=== PATIENT | female | born 1940 | race Caucasian/White ===

== ENCOUNTER 2017-12-21 16:18 | Emergency (ER) | payer MEDICARE ==
[2017-12-21 19:01] LABS: ABS Basophils 0 10^3/ul (0-0.2); ABS Eosinophils 0.1 10^3/ul (0-0.6); ABS Lymphocytes 2.9 10^3/ul (1.0-4.8); ABS Monocytes 1.2 10^3/ul (0-0.8); ABS Nucleated RBC 0 10^3/ul; Eosinophil % 0.7 % (0-6); Hematocrit 31 % (35-47); Lymphocyte % 28.6 % (25-47); Mean Corpuscular HGB Conc 36 g/dl (31-36); Mean Corpuscular Hemoglobin 33 pg (27-31); Mean Corpuscular Volume 94 fL (80-97); Mean Platelet Volume 7.6 um3 (7.4-10.4); Nucleated Red Blood Cells % 0.2; Platelet Count 363 10^3/ul (150-450); Red Blood Count 3.32 10^6/ul (4.0-5.4); Red Cell Distribution Width 21 % (10.5-15); White Blood Count 10.2 10^3/ul (3.5-10.8)
[2017-12-21 19:03] LABS: INR 1.1 (0.77-1.02)
[2017-12-21 19:05] LABS: EGFR Non-African American 54.4 (>60)
--- NOTE | 2017-12-21 19:06 | RAD ---
Indication: Dizziness. Single frontal view of the chest performed at 1839 hours was reviewed. Comparison is made with previous exam dated December 29, 2007. No mediastinal shift is noted. Heart is of normal size and configuration. Lung hines appear clear. There is likely poor inspiration bilaterally. IMPRESSION: NO ACTIVE CARDIOPULMONARY DISEASE IS NOTED.
--- NOTE | 2017-12-21 19:09 | RAD ---
Indication: Headaches. CT of the brain was performed without IV contrast. No prior study is available for comparison. Ventricular structures are midline. No midline shift is noted. The extra-axial spaces are unremarkable. There is no evidence of intracranial mass or hemorrhage. No other high or low density lesions are identified. Periventricular lucency consistent with chronic ischemic White matter change is noted. Mastoid air cells and paranasal sinuses are otherwise unremarkable. IMPRESSION: Chronic ischemic White matter change without evidence of intracranial mass or hemorrhage.
[2017-12-21 19:24] VITALS: BP 118/99
[2017-12-21] MEDS ORDERED: Acetaminophen TAB* 325 MG PO ONE (20:07)
--- NOTE | 2017-12-21 20:08 | RAD ---
Indication: Right upper quadrant pain. Real-time sonography of the right upper quadrant was performed. The liver measures 15 cm in length. It is diffusely increased in echogenicity consistent with hepatic steatosis. Left lobe of the liver is not well visualized. The patient status post cholecystectomy. The common duct measures 5 mm. The right kidney measures 9.3 x 4.3 x 4.8 cm without hydronephrosis. The visualized portions of the pancreas head, neck and proximal body are unremarkable. IMPRESSION: Limited evaluation due to body habitus. Echogenic liver consistent with hepatic steatosis. No biliary duct dilatation is noted.
[2017-12-21] MEDS ORDERED: Acetaminophen TAB* 325 MG ONE (20:09)
[2017-12-21 20:36] LABS: Urine Appearance Clear; Urine Blood Negative (Negative); Urine Color Yellow; Urine Ketones Trace (Negative); Urine Protein 1+(30 mg/dL) (Negative); Urine Specific Gravity 1.019 (1.010-1.030); Urine Urobilinogen Positive (Negative)
[2017-12-21] MEDS ORDERED: Levofloxacin TAB* 500 MG PO ONE (20:54)
--- NOTE | 2017-12-21 20:57 | ED ---
Jaya Castillo Stephanie, scribed for Brian Clinton on 12/21/17 at 1819 . Complex/Multi-Sys Presentation - HPI Summary HPI Summary: The pt is a 77 y/o F presenting to the ED with c/o QUEEN that began on 12/17/17. Symptoms include weakness, lack of appetite and nausea. She denies CP, SOB and abd pain. The pt has had several EKGs at PCP who sent the pt to the ED for evaluation. The pt has no hx of RI. - History Of Current Complaint Chief Complaint: EDGeneral Time Seen by Provider: 12/21/17 17:58 Hx Obtained From: Patient Onset/Duration: Gradual Onset, Lasting Days - 4, Still Present Timing: Constant Severity Currently: Moderate Associated Signs And Symptoms: Positive: Weakness, Headache, Nausea, Decreased Oral Intake. Negative: SOB, Chest Pain, Abdominal Pain - Allergies/Home Medications Allergies/Adverse Reactions: Allergies Allergy/AdvReac Type Severity Reaction Status Date / Time metronidazole [From Flagyl] Allergy Nausea And Verified 12/21/17 16:26 Vomiting Home Medications: Home Medications Atorvastatin* [Lipitor*] 40 mg PO DAILY 12/21/17 [History Confirmed 12/21/17] Levothyroxine TAB* [Synthroid TAB*] 125 mcg PO DAILY 12/21/17 [History Confirmed 12/21/17] PARoxetine HCL TAB* [Paxil TAB*] 10 - 20 mg PO DAILY 12/21/17 [History Confirmed 12/21/17] Propranolol TAB* [Inderal TAB*] 40 mg PO DAILY 12/21/17 [History Confirmed 12/21] amLODIPine TAB* [Norvasc 5 mg TAB*] 2.5 mg PO DAILY 12/21/17 [History Confirmed 12/21/17] PMH/Surg Hx/FS Hx/Imm Hx Sensory History: Denies: Hx Legally Blind EENT History: Denies: Hx Deafness - Cancer History Hx Chemotherapy: No Hx Radiation Therapy: No - Surgical History Surgery Procedure, Year, and Place: N/A Infectious Disease History: No Infectious Disease History: Denies: Traveled Outside the [place] in Last 30 Days - Family History Known Family History: Negative: Renal Disease - Social History Occupation: Retired Lives: With Family Review of Systems Positive: Other - lack of appetite. Negative: Fever Negative: Chest Pain Negative: Shortness Of Breath Positive: Nausea. Negative: Abdominal Pain Positive: Headache, Weakness All Other Systems Reviewed And Are Negative: Yes Physical Exam - Summary Physical Exam Summary: Appearance: Well appearing, no pain distress Skin: warm, dry, reflects adequate perfusion Head/face: normal Eyes: EOMI, CHAYITO ENT: normal Neck: supple, non-tender Respiratory: CTA, breath sounds present Cardiovascular: RRR, pulses symmetrical Abdomen: non-tender, soft Bowel: present Musculoskeletal: normal, strength/ROM intact Neuro: normal, sensory motor intact, A&Ox3 Triage Information Reviewed: Yes Vital Signs On Initial Exam: Initial Vitals Temp Pulse Resp BP Pulse Ox 99.4 F 90 16 162/75 93 12/21/17 16:20 12/21/17 16:20 12/21/17 16:20 12/21/17 16:20 12/21/17 16:20 Vital Signs Reviewed: Yes Diagnostics - Vital Signs Vital Signs Temp Pulse Resp BP Pulse Ox 12/21/17 16:20 99.4 F 90 16 162/75 93 - Laboratory Lab Results: Lab Results 12/21/17 12/21/17 12/21/17 Range/Units 18:30 18:30 18:30 WBC 10.2 (3.5-10.8) 10^3/ul RBC 3.32 L (4.0-5.4) 10^6/ul Hgb 11.0 L (12.0-16.0) g/dl Hct 31 L (35-47) % MCV 94 (80-97) fL MCH 33 H (27-31) pg MCHC 36 (31-36) g/dl RDW 21 H (10.5-15) % Plt Count 363 (150-450) 10^3/ul MPV 7.6 (7.4-10.4) um3 Neut % (Auto) 58.7 (38-83) % Lymph % (Auto) 28.6 (25-47) % [place] % (Auto) 11.6 H (0-7) % Eos % (Auto) 0.7 (0-6) % Baso % (Auto) 0.4 (0-2) % Absolute Neuts (auto) 6.0 (1.5-7.7) 10^3/ul Absolute Lymphs (auto) 2.9 (1.0-4.8) 10^3/ul Absolute Monos (auto) 1.2 H (0-0.8) 10^3/ul Absolute Eos (auto) 0.1 (0-0.6) 10^3/ul Absolute Basos (auto) 0 (0-0.2) 10^3/ul Absolute Nucleated RBC 0 10^3/ul Nucleated RBC % 0.2 INR (Anticoag Therapy) (0.77-1.02) APTT (26.0-36.3) seconds Sodium 136 L (139-145) mmol/L Potassium 3.8 (3.5-5.0) mmol/L Chloride 101 (101-111) mmol/L Carbon Dioxide 27 (22-32) mmol/L Anion Gap 8 (2-11) mmol/L BUN 13 (6-24) mg/dL Creatinine 0.99 H (0.51-0.95) mg/dL Est GFR ( Amer) 69.9 (>60) Est GFR (Non-Af Amer) 54.4 (>60) BUN/Creatinine Ratio 13.1 (8-20) Glucose 125 H (70-100) mg/dL Lactic Acid 0.9 (0.5-2.0) mmol/L Calcium 9.6 (8.6-10.3) mg/dL Magnesium 2.1 (1.9-2.7) mg/dL Total Bilirubin 3.20 H (0.2-1.0) mg/dL AST 20 (13-39) U/L ALT 11 (7-52) U/L Alkaline Phosphatase 44 (34-104) U/L Total Creatine Kinase 93 (10-223) U/L Troponin I 0.01 (<0.04) ng/mL Total Protein 7.1 (6.4-8.9) g/dL Albumin 4.5 (3.2-5.2) g/dL Globulin 2.6 (2-4) g/dL Albumin/Globulin Ratio 1.7 (1-3) TSH 2.63 (0.34-5.60) mcIU/mL Urine Color Urine Appearance Urine pH (5-9) Ur Specific [place] (1.010-1.030) Urine Protein (Negative) Urine Ketones (Negative) Urine Blood (Negative) Urine Nitrate (Negative) Urine Bilirubin (Negative) Urine Urobilinogen (Negative) Ur Leukocyte Esterase (Negative) Urine WBC (Auto) (Absent) Urine RBC (Auto) (Absent) Ur Squamous Epith Cells (Absent) Urine Bacteria (Absent) Urine Glucose (Negative) 12/21/17 12/21/17 Range/Units 18:30 20:04 WBC (3.5-10.8) 10^3/ul RBC (4.0-5.4) 10^6/ul Hgb (12.0-16.0) g/dl Hct (35-47) % MCV (80-97) fL MCH (27-31) pg MCHC (31-36) g/dl RDW (10.5-15) % Plt Count (150-450) 10^3/ul MPV (7.4-10.4) um3 Neut % (Auto) (38-83) % Lymph % (Auto) (25-47) % [place] % (Auto) (0-7) % Eos % (Auto) (0-6) % Baso % (Auto) (0-2) % Absolute Neuts (auto) (1.5-7.7) 10^3/ul Absolute Lymphs (auto) (1.0-4.8) 10^3/ul Absolute Monos (auto) (0-0.8) 10^3/ul Absolute Eos (auto) (0-0.6) 10^3/ul Absolute Basos (auto) (0-0.2) 10^3/ul Absolute Nucleated RBC 10^3/ul Nucleated RBC % INR (Anticoag Therapy) 1.10 H (0.77-1.02) APTT 27.7 (26.0-36.3) seconds Sodium (139-145) mmol/L Potassium (3.5-5.0) mmol/L Chloride (101-111) mmol/L Carbon Dioxide (22-32) mmol/L Anion Gap (2-11) mmol/L BUN (6-24) mg/dL Creatinine (0.51-0.95) mg/dL Est GFR ( Amer) (>60) Est GFR (Non-Af Amer) (>60) BUN/Creatinine Ratio (8-20) Glucose (70-100) mg/dL Lactic Acid (0.5-2.0) mmol/L Calcium (8.6-10.3) mg/dL Magnesium (1.9-2.7) mg/dL Total Bilirubin (0.2-1.0) mg/dL AST (13-39) U/L ALT (7-52) U/L Alkaline Phosphatase (34-104) U/L Total Creatine Kinase (10-223) U/L Troponin I (<0.04) ng/mL Total Protein (6.4-8.9) g/dL Albumin (3.2-5.2) g/dL Globulin (2-4) g/dL Albumin/Globulin Ratio (1-3) TSH (0.34-5.60) mcIU/mL Urine Color Yellow Urine Appearance Clear Urine pH 6.0 (5-9) Ur Specific [place] 1.019 (1.010-1.030) Urine Protein 1+(30 mg/dl) A (Negative) Urine Ketones Trace A (Negative) Urine Blood Negative (Negative) Urine Nitrate Negative (Negative) Urine Bilirubin Negative (Negative) Urine Urobilinogen Positive A (Negative) Ur Leukocyte Esterase 1+ A (Negative) Urine WBC (Auto) Absent (Absent) Urine RBC (Auto) Trace(0-2/hpf) (Absent) Ur Squamous Epith Cells Present A (Absent) Urine Bacteria Absent (Absent) Urine Glucose Negative (Negative) Result Diagrams: 12/21/17 18:30 12/21/17 18:30 Lab Statement: Any lab studies that have been ordered have been reviewed, and results considered in the medical decision making process. - Radiology CXR Xray Interpretation: No Acute Changes Radiology Interpretation Completed By: Radiologist - NO ACTIVE CARDIOPULMONARY DISEASE IS NOTED. ED physician has reviewed this report. - CT Brain CT Interpretation: No Acute Changes CT Interpretation Completed By: Radiologist - Chronic ischemic White matter change without evidence of intracranial mass or hemorrhage. ED physician has reviewed this report. - EKG 16:50 Cardiac Rate: NL EKG Rhythm: Sinus Rhythm - 83 BPM EKG Interpretation: No acute changes - Additional Comments Diagnostic Additional Comments: US abdomen reveals: Limited evaluation due to body habitus. Echogenic liver consistent with hepatic steatosis. No biliary duct dilatation is noted. ED physician has reviewed this report. Complex Multi-Symp Course/Dx Course Of Treatment: The pt is a 77 y/o F presenting to the ED with c/o QUEEN that began on 4/22/18. Symptoms include weakness, lack of appetite and nausea. She denies CP, SOB and abd pain. Blood and UA obtained. Bilirubin elevated. ED physician recommended the pt follow up with GI and PCP within 1 week. - Diagnoses Differential Diagnoses/HQI/PQRI: CVA, Metabolic Abnormality, Sepsis, Urinary Tract Infection Provider Diagnoses: UTI (urinary tract infection), Elevated bilirubin Discharge - Sign-Out/Discharge Documenting (check all that apply): Discharge/Admit/Transfer - Discharge - Discharge Plan Condition: Stable Disposition: HOME Prescriptions: Levofloxacin TAB* [Levaquin TAB*] 500 mg PO DAILY #3 tab Patient Education Materials: Urinary Tract Infection in Women (ED) Referrals: Yoli Albert MD [Primary Care Provider] - 1 Week Juan Greenberg MD [Medical Doctor] - 1 Week Additional Instructions: Return to ED for new or worsening symptoms. - Billing Disposition and Condition Condition: STABLE Disposition: HOME The documentation as recorded by the Jaya gastelum Stephanie accurately reflects the service I personally performed and the decisions made by Mary Beth reyez Emmanuel.
== END 2017-12-21 21:06 | disposition home or self-care (01) ==
LOC: ED 16:18
DX: N39.0 Urinary tract infection, site not specified (principal); E80.7 Disorder of bilirubin metabolism, unspecified; R53.1 Weakness; R11.0 Nausea; R51 Headache; R63.0 Anorexia
CPT/HCPCS: 36415; 70450; 71045; 76705; 80053; 81003; 81015; 82150; 82248; 82550; 83605; 83690; 83735; 84443; 84484; 85025; 85610; 85730; 87086; 93005; 99283; A9270-GY

== ENCOUNTER 2018-08-01 15:17 | Inpatient (IN) | payer MEDICARE ==
[2018-08-01] MEDS ORDERED: Ondansetron INJ* 2 MG/ML VIAL IV PRN (15:34)
[2018-08-01] MEDS ORDERED: Acetaminophen TAB* 325 MG PO PRN (15:34)
[2018-08-01] MEDS: NS 0.9% 1000 ML* 1,000 ML IV SCH ×2 (17:29→23:26)
[2018-08-01] MEDS: Enoxaparin(*) 40 MG/0.4 ML SYR SUBCUT SCH (19:21)
[2018-08-01] MEDS: methylPREDNISolone SOD 40 MG* 1 ML VIAL IV SCH (19:21)
[2018-08-02] MEDS: methylPREDNISolone SOD 40 MG* 1 ML VIAL IV SCH ×2 (03:03→16:16)
--- NOTE | 2018-08-02 05:12 | HP ---
CC: Yoli Albert MD; Monica Santos MD * HISTORY AND PHYSICAL: DATE OF ADMISSION: 08/01/18 PRIMARY CARE PROVIDER: Yoli Albert MD PRIMARY ONCOLOGIST/GORE INSERTER: Monica Santos MD ATTENDING PHYSICIAN: Rm Smith MD * (DICTATED BY MONA WILL) ADMITTING PROVIDER: MONA Will CHIEF COMPLAINT: Malaise. 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 Monica Santos for the last several months and recently completed a prednisone taper approximately 6 weeks ago. The patient states that she was feeling very well while on the prednisone and shortly following her taper. She has been seen on 2 occasions since completing for prednisone, on both occasions her hemoglobin was within normal limits and the patient was asymptomatic. Over the last week to 2 weeks, the patient has noted progressive fatigue as well as darkly-colored urine. Her has noted that her skin appeared to be slightly yellow in color over the last day or so. She presented to medical oncology office with these complaints. Her hemoglobin was noted to be 7.1 with a total bilirubin of 8 and she was subsequently referred for hospitalization. Regarding patient's prior presentation, she had a mild anemia with a hemoglobin of approximately 11 and presented to the emergency department with complaints of fatigue. Total bilirubin was noted to be moderately elevated in the 2 to 3 range at that time with slight dilation of the common bile duct. She underwent GI evaluation who noted that the majority of her bilirubin was mostly indirect. Subsequent haptoglobin was undetectable and her LDH was elevated. She was subsequently referred to Dr. Santos for evaluation of hemolytic anemia. Direct Elias testing was positive. She was subsequently started on prednisone with a very slow taper, which she completed approximately 6 weeks ago as noted above. PAST MEDICAL HISTORY: 1. Hypothyroidism. 2. Hyperlipidemia. 3. Hypertension. 4. Depression. 5. Autoimmune hemolytic anemia. PAST SURGICAL HISTORY: 1. Cholecystectomy. 2. Tonsillectomy. HOME MEDICATIONS: 1. Amlodipine 2.5 mg p.o. twice daily. 2. Vitamin D 1000 units p.o. daily. 3. Fish oil 1000 mg p.o. daily. 4. Folic acid 1 mg p.o. daily. 5. Lipitor 20 mg p.o. daily. 6. Meclizine 25 mg p.o. 3 times daily as needed for dizziness. 7. Paxil 10 mg p.o. daily. 8. Probiotic 1 capsule p.o. daily. 9. Propranolol 40 mg p.o. daily. 10. Synthroid 125 mcg p.o. daily. 11. Tums 500 mg chewable as needed for heartburn. SOCIAL HISTORY: The patient lives at home with her . No significant history of smoking or alcohol consumption. PHYSICAL EXAMINATION GENERAL: This is a pleasant-appearing 77-year-old female accompanied by her who appears mildly fatigued but in no acute distress. HEENT: Head is normocephalic, atraumatic. Mucous membranes are pink and moist , noted scleral icterus. RESPIRATORY: Lungs are clear to auscultation without wheezes, crackles or rhonchi. CARDIOVASCULAR: Heart has a regular rate and rhythm without murmurs, rubs, or gallops. ABDOMEN: Soft and nontender to palpation. EXTREMITIES: No edema. SKIN: Mildly jaundiced in appearance. LABORATORY DATA: CBC shows a white blood cell count of 16,000, hemoglobin of 7.1 g/dL, and a platelet count of 347,000. Chemistry panel shows a sodium of 139, potassium of 4.0, BUN of 20, creatinine of 1.02, total bilirubin of 8. LDH of 714 with a haptoglobin that is pending. IMAGING: None. ASSESSMENT AND PLAN: This is a 77-year-old female with known autoimmune hemolytic anemia, recently completed prednisone taper, presents with progressive malaise and fatigue with obvious jaundice on exam and significant anemia and hyperbilirubinemia. The patient subsequently admitted for relapse of her autoimmune hemolytic anemia. 1. Hemolytic anemia - plan to restart corticosteroids. This is a rather rapid relapse and patient may require rituximab versus splenectomy. For the time being, we will start with IV Solu-Medrol and transition to oral prednisone at 1 mg/kg. Avoid transfusion at this time unless she becomes grossly symptomatic. Start IV fluids and closely monitor bilirubin. 2. Hypertension - continue amlodipine at this time. 3. Depression - continue Paxil. 4. DVT prophylaxis - 40 mg of Lovenox subcu daily. 5. Code status: The patient is full code. 6. Healthcare proxy is her . DISPOSITION: The patient is being admitted to inpatient status with estimated length of stay to be greater than 2 midnights. MONA WILL [id number]/[facility] #: [id number] [facility]ENTERCoreen
[2018-08-02 05:54] LABS: Hematocrit 16 % (35-47); Mean Corpuscular HGB Conc 34 g/dl (31-36); Mean Corpuscular Hemoglobin 36 pg (27-31); Mean Corpuscular Volume 107 fL (80-97); Mean Platelet Volume 8.1 fL (7.4-10.4); Platelet Count 289 10^3/ul (150-450); Red Blood Count 1.52 10^6/ul (4.00-5.40); Red Cell Distribution Width 36 % (10.5-15); White Blood Count 15.4 10^3/ul (3.5-10.8)
[2018-08-02 06:02] LABS: EGFR Non-African American 65.7 (>60)
[2018-08-02 06:11] LABS: ABS Basophils 0 10^3/ul (0-0.2); ABS Eosinophils 0.1 10^3/ul (0-0.6); ABS Lymphocytes 3.1 10^3/ul (1.0-4.8); ABS Monocytes 0.9 10^3/ul (0-0.8); ABS Neutrophils 11.1 10^3/ul (1.5-7.7); ABS Nucleated RBC 2.7 10^3/ul; Eosinophil % 0.3 %; Lymphocyte % 20.7 %
[2018-08-02] MEDS: Levothyroxine TAB* 125 MCG TAB PO SCH (06:25)
--- NOTE | 2018-08-02 10:04 | PN ---
Progress Note - Progress Note Date of Service: 08/02/18 SOAP: Subjective: [Patient reports significant fatigue this morning. Denies SOB or dizziness.] Objective: [ Acetaminophen (Tylenol Tab*) 650 mg PO Q4H PRN PRN Reason: FEVER/PAIN Amlodipine Besylate (Norvasc Tab*) 2.5 mg PO BID [facility] Atorvastatin Calcium (Lipitor*) 20 mg PO DAILY [facility] Enoxaparin Sodium (Lovenox(*)) 40 mg SUBCUT Q24H [facility] Last Admin: 08/01/18 19:21 Dose: 40 mg Folic Acid (Folvite Tab*) 1 mg PO DAILY [facility] Sodium Chloride (Ns 0.9% 1000 Ml*) 1,000 mls @ 200 mls/hr IV PER RATE [facility] Stop: 08/02/18 20:44 Last Admin: 08/01/18 23:26 Dose: 200 mls/hr Levothyroxine Sodium (Synthroid Tab*) 125 mcg PO DAILY@0630 [facility] Last Admin: 08/02/18 06:25 Dose: 125 mcg Methylprednisolone Sodium Succinate (Solu-Medrol 40 Mg) 40 mg IV Q12H [facility] Last Admin: 08/02/18 03:03 Dose: 40 mg Ondansetron HCl (Zofran Inj*) 4 mg IV Q4H PRN PRN Reason: NAUSEA/VOMITING Paroxetine HCl (Paxil Tab*) 10 mg PO DAILY [facility] Propranolol HCl (Inderal Tab*) 40 mg PO DAILY [facility] Laboratory Results - last 24 hr 08/02/18 08/02/18 08/02/18 05:15 05:15 05:16 WBC 15.4 H RBC 1.52 L Hgb 5.5 L* Hct 16 L MCV 107 H MCH 36 H MCHC 34 RDW 36 H Plt Count 289 MPV 8.1 Neut % (Auto) 72.8 Lymph % (Auto) 20.7 [place] % (Auto) 6.0 Eos % (Auto) 0.3 Baso % (Auto) 0.2 Absolute Neuts (auto) 11.1 H Absolute Lymphs (auto) 3.1 Absolute Monos (auto) 0.9 H Absolute Eos (auto) 0.1 Absolute Basos (auto) 0 Absolute Nucleated RBC 2.7 Nucleated RBC % 18.0 Sodium 140 Potassium 3.8 Chloride 111 Carbon Dioxide 24 Anion Gap 5 BUN 18 Creatinine 0.84 Est GFR ( Amer) 79.6 Est GFR (Non-Af Amer) 65.7 BUN/Creatinine Ratio 21.4 H Glucose 223 H Calcium 8.4 L Total Bilirubin 5.70 H D AST 28 ALT 12 Alkaline Phosphatase 56 Total Protein 5.3 L Albumin 3.5 Globulin 1.8 L Albumin/Globulin Ratio 1.9 Blood Type A Positive Antibody Screen Negative Crossmatch See Detail Vital Signs: Temp Pulse Resp BP Pulse Ox 98.8 F 104 17 135/45 96 08/02/18 03:01 08/02/18 03:01 08/02/18 03:01 08/02/18 03:01 08/02/18 03:01 Exam: Gen: Fatigued appearing 77 yo female in NAD HEENT: MMM CV: RRR, no m/r/g Resp: CTA, no w/c/r Abd: soft, nonTTP Ext: trace LE edema Skin: mild jaundice] Assessment: [77 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] Plan: [1. AIHA - cont IV corticosteroids - transfuse 2U PRBCs this am as Hgb is now <6, repeat CBC this afternoon following transfusion - noted improvement in Tbili, follow reticulocyte count - consider rituximab/splenectomy as future treatment options Dispo: anticipate dc home when Hgb stabilizes]
[2018-08-02] MEDS: amLODIPine TAB* 5 MG PO SCH ×2 (10:16→20:42)
[2018-08-02] MEDS: PARoxetine HCL TAB* 10 MG PO SCH (10:16)
[2018-08-02] MEDS: Propranolol TAB* 40 MG PO SCH (10:16)
[2018-08-02] MEDS: Atorvastatin* 40 MG TAB PO SCH (10:17)
[2018-08-02] MEDS: Folic Acid TAB* 1 MG PO SCH (10:17)
[2018-08-02 16:08] LABS: Immature Retic Fraction 0.79; RBC Retic Count 2.66 10^6/ul (4.6-6.2); Red Blood Count 2.66 10^6/ul (4.00-5.40)
[2018-08-02 17:18] LABS: Corrected Retic Count 13.6 % (0.5-1.5); Hematocrit 26 % (35-47); Hematocrit for Retic CNT 26 % (35-47); Hemoglobin 8.8 g/dl (12.0-16.0); Mean Corpuscular HGB Conc 34 g/dl (31-36); Mean Corpuscular Hemoglobin 33 pg (27-31); Mean Corpuscular Volume 99 fL (80-97); Platelet Count 312 10^3/ul (150-450); Red Cell Distribution Width 28 % (10.5-15); White Blood Count 26.7 10^3/ul (3.5-10.8)
[2018-08-02] MEDS: Enoxaparin(*) 40 MG/0.4 ML SYR SUBCUT SCH (18:16)
[2018-08-02 23:06] LABS: Hemoglobin 5.5 g/dl (12.0-16.0)
[2018-08-03] MEDS: methylPREDNISolone SOD 40 MG* 1 ML VIAL IV SCH ×2 (03:16→18:27)
[2018-08-03] MEDS: Levothyroxine TAB* 125 MCG TAB PO SCH (05:31)
[2018-08-03 05:42] LABS: Immature Retic Fraction 0.77; RBC Retic Count 2.41 10^6/ul (4.6-6.2); Red Blood Count 2.41 10^6/ul (4.00-5.40)
[2018-08-03 06:15] LABS: ABS Basophils 0 10^3/ul (0-0.2); ABS Eosinophils 0 10^3/ul (0-0.6); ABS Lymphocytes 2.7 10^3/ul (1.0-4.8); ABS Monocytes 1.4 10^3/ul (0-0.8); ABS Neutrophils 14.3 10^3/ul (1.5-7.7); Corrected Retic Count 12.3 % (0.5-1.5); Eosinophil % 0 %; Hematocrit 24 % (35-47); Hematocrit for Retic CNT 24 % (35-47); Hemoglobin 8.1 g/dl (12.0-16.0); Lymphocyte % 14.8 %; Mean Corpuscular HGB Conc 33 g/dl (31-36); Mean Corpuscular Hemoglobin 34 pg (27-31); Mean Corpuscular Volume 101 fL (80-97); Nucleated Red Blood Cells % 21.5; Platelet Count 289 10^3/ul (150-450); Red Cell Distribution Width 30 % (10.5-15); White Blood Count 18.5 10^3/ul (3.5-10.8)
[2018-08-03] MEDS ORDERED: NS 0.9% 1000 ML* 1,000 ML IV SCH (08:15)
[2018-08-03] MEDS: amLODIPine TAB* 5 MG PO SCH ×2 (09:09→19:56)
[2018-08-03] MEDS: Folic Acid TAB* 1 MG PO SCH (09:10)
[2018-08-03] MEDS: Atorvastatin* 40 MG TAB PO SCH (09:10)
[2018-08-03] MEDS: Propranolol TAB* 40 MG PO SCH (09:10)
[2018-08-03] MEDS: PARoxetine HCL TAB* 10 MG PO SCH (09:11)
--- NOTE | 2018-08-03 16:48 | PN ---
Progress Note - Progress Note Date of Service: 08/03/18 SOAP: Subjective: [Feels slightly better today. No new complaints] Objective: [ Laboratory Results - last 24 hr 08/02/18 08/02/18 08/02/18 05:16 14:03 15:45 WBC 26.7 H RBC RBC (Retic) Cancelled Hgb 5.5 L* 8.8 L Hct 26 L HCT (Retic) Cancelled 26 L D MCV 99 H MCH 33 H MCHC 34 RDW 28 H Plt Count 312 MPV 8.0 Neut % (Auto) Lymph % (Auto) Ada % (Auto) Eos % (Auto) Baso % (Auto) Absolute Neuts (auto) Absolute Lymphs (auto) Absolute Monos (auto) Absolute Eos (auto) Absolute Basos (auto) Absolute Nucleated RBC Immature Gran % Neutrophils % Band Neutrophils % Lymphocytes % Reactive Lymphs % Metamyelocytes % Nucleated RBC % Nucleated RBCs/100 WBC Normal RBC Morphology Polychromasia Hypochromasia Microcytosis Macrocytosis Retic Count, Calc Cancelled Corrected Retic Count Cancelled 13.6 H Retic Shift Factor Cancelled 2.0 Retic Production Index Cancelled 6.80 Immature Retic Fraction Cancelled Mean Retic Volume Cancelled Sodium Potassium Chloride Carbon Dioxide Anion Gap BUN Creatinine Est GFR ( Amer) Est GFR (Non-Af Amer) BUN/Creatinine Ratio Glucose Calcium Total Bilirubin AST ALT Alkaline Phosphatase Lactate Dehydrogenase Total Protein Albumin Globulin Albumin/Globulin Ratio Transfusion React Rpt Donor Unit # [id number] Reaction Interpretation 08/03/18 08/03/18 05:09 05:09 WBC 18.5 H RBC 2.41 L RBC (Retic) 2.41 L Hgb 8.1 L Hct 24 L HCT (Retic) 24 L MCV 101 H MCH 34 H MCHC 33 RDW 30 H Plt Count 289 MPV 8.0 Neut % (Auto) 77.6 Lymph % (Auto) 14.8 Ada % (Auto) 7.4 Eos % (Auto) 0 Baso % (Auto) 0.2 Absolute Neuts (auto) 14.3 H Absolute Lymphs (auto) 2.7 Absolute Monos (auto) 1.4 H Absolute Eos (auto) 0 Absolute Basos (auto) 0 Absolute Nucleated RBC 4.0 Immature Gran % 13 H Neutrophils % 76 Band Neutrophils % 9 H Lymphocytes % 9 Reactive Lymphs % 2 Metamyelocytes % 4 H Nucleated RBC % 21.5 Nucleated RBCs/100 WBC 15 H Normal RBC Morphology Not Reportable Polychromasia 3+ Hypochromasia 2+ Microcytosis 3+ Macrocytosis 3+ Retic Count, Calc 23.0 H Corrected Retic Count 12.3 H Retic Shift Factor 2.0 Retic Production Index 6.20 Immature Retic Fraction 0.77 Mean Retic Volume 124.3 Sodium 142 Potassium 4.4 Chloride 111 Carbon Dioxide 25 Anion Gap 6 BUN 22 Creatinine 0.86 Est GFR ( Amer) 77.4 Est GFR (Non-Af Amer) 64.0 BUN/Creatinine Ratio 25.6 H Glucose 172 H Calcium 9.0 Total Bilirubin 4.10 H D AST 25 ALT 13 Alkaline Phosphatase 57 Lactate Dehydrogenase 700 H Total Protein 5.6 L Albumin 3.7 Globulin 1.9 L Albumin/Globulin Ratio 1.9 Transfusion React Rpt Donor Unit # Reaction Interpretation Acetaminophen (Tylenol Tab*) 650 mg PO Q4H PRN PRN Reason: FEVER/PAIN Amlodipine Besylate (Norvasc Tab*) 2.5 mg PO BID [facility] Last Admin: 08/03/18 09:09 Dose: 2.5 mg Atorvastatin Calcium (Lipitor*) 20 mg PO DAILY [facility] Last Admin: 08/03/18 09:10 Dose: 20 mg Enoxaparin Sodium (Lovenox(*)) 40 mg SUBCUT Q24H [facility] Last Admin: 08/02/18 18:16 Dose: 40 mg Folic Acid (Folvite Tab*) 1 mg PO DAILY [facility] Last Admin: 08/03/18 09:10 Dose: 1 mg Sodium Chloride (Ns 0.9% 1000 Ml*) 1,000 mls @ 100 mls/hr IV PER RATE [facility] Stop: 08/03/18 18:14 Last Admin: 08/03/18 09:09 Dose: 100 mls/hr Levothyroxine Sodium (Synthroid Tab*) 125 mcg PO DAILY@0630 [facility] Last Admin: 08/03/18 05:31 Dose: 125 mcg Methylprednisolone Sodium Succinate (Solu-Medrol 40 Mg) 40 mg IV Q12H [facility] Last Admin: 08/03/18 03:16 Dose: 40 mg Ondansetron HCl (Zofran Inj*) 4 mg IV Q4H PRN PRN Reason: NAUSEA/VOMITING Paroxetine HCl (Paxil Tab*) 10 mg PO DAILY [facility] Last Admin: 08/03/18 09:11 Dose: 10 mg Propranolol HCl (Inderal Tab*) 40 mg PO DAILY [facility] Last Admin: 08/03/18 09:10 Dose: 40 mg Vital Signs: Temp Pulse Resp BP Pulse Ox 97.8 F 80 16 126/45 94 08/03/18 07:13 08/03/18 07:13 08/03/18 08:00 08/03/18 07:13 08/03/18 07:13 Exam: Gen: Fatigued appearing 77 yo female in NAD HEENT: MMM CV: RRR, no m/r/g Resp: CTA, no w/c/r Abd: soft, nonTTP Ext: trace LE edema Skin: mild jaundice] Assessment: [77 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] Plan: [1. AIHA - cont IV corticosteroids, transition to oral prednisone tomorrow - received 2U PRBCs yesterday, and responded well - noted improvement in Tbili, and reticulocyte count - plan for rituximab starting next week as an outpatient Dispo: anticipate likely dc home tomorrow with continued oral prednisone and plan for rituximab starting 08/10]
[2018-08-03] MEDS: Enoxaparin(*) 40 MG/0.4 ML SYR SUBCUT SCH (18:28)
[2018-08-04] MEDS: Levothyroxine TAB* 125 MCG TAB PO SCH (06:03)
[2018-08-04 06:26] LABS: Immature Retic Fraction 0.77; RBC Retic Count 2.38 10^6/ul (4.6-6.2); Red Blood Count 2.38 10^6/ul (4.00-5.40)
[2018-08-04 06:47] LABS: EGFR Non-African American 56.4 (>60)
[2018-08-04 08:48] LABS: Corrected Retic Count 13.7 % (0.5-1.5); Hematocrit 25 % (35-47); Hematocrit for Retic CNT 25 % (35-47); Mean Corpuscular HGB Conc 32 g/dl (31-36); Mean Corpuscular Hemoglobin 34 pg (27-31); Mean Corpuscular Volume 104 fL (80-97); Mean Platelet Volume 8.1 fL (7.4-10.4); Platelet Count 266 10^3/ul (150-450); Red Cell Distribution Width 36 % (10.5-15); White Blood Count 15.2 10^3/ul (3.5-10.8)
[2018-08-04 08:49] LABS: ABS Basophils 0 10^3/ul (0-0.2); ABS Eosinophils 0 10^3/ul (0-0.6); ABS Lymphocytes 2.6 10^3/ul (1.0-4.8); ABS Monocytes 1.1 10^3/ul (0-0.8); ABS Neutrophils 11.6 10^3/ul (1.5-7.7); ABS Nucleated RBC 1.5 10^3/ul; Eosinophil % 0 %; Lymphocyte % 16.8 %; Nucleated Red Blood Cells % 9.8
[2018-08-04] MEDS ORDERED: predniSONE TAB* 20 MG PO SCH (09:00)
[2018-08-04] MEDS: Folic Acid TAB* 1 MG PO SCH (09:37)
[2018-08-04] MEDS: amLODIPine TAB* 5 MG PO SCH (09:37)
[2018-08-04] MEDS: PARoxetine HCL TAB* 10 MG PO SCH (09:37)
[2018-08-04] MEDS: Atorvastatin* 40 MG TAB PO SCH (09:41)
[2018-08-04] MEDS: Propranolol TAB* 40 MG PO SCH (09:42)
--- NOTE | 2018-08-04 09:48 | PN ---
Progress Note - Progress Note Date of Service: 08/04/18 SOAP: Subjective: []Feels better then admission. Energy is good, ok to go home. Acetaminophen (Tylenol Tab*) 650 mg PO Q4H PRN PRN Reason: FEVER/PAIN Amlodipine Besylate (Norvasc Tab*) 2.5 mg PO BID [facility] Last Admin: 08/04/18 09:37 Dose: 2.5 mg Atorvastatin Calcium (Lipitor*) 20 mg PO DAILY [facility] Last Admin: 08/04/18 09:41 Dose: 20 mg Enoxaparin Sodium (Lovenox(*)) 40 mg SUBCUT Q24H [facility] Last Admin: 08/03/18 18:28 Dose: 40 mg Folic Acid (Folvite Tab*) 1 mg PO DAILY [facility] Last Admin: 08/04/18 09:37 Dose: 1 mg Levothyroxine Sodium (Synthroid Tab*) 125 mcg PO DAILY@0630 [facility] Last Admin: 08/04/18 06:03 Dose: 125 mcg Ondansetron HCl (Zofran Inj*) 4 mg IV Q4H PRN PRN Reason: NAUSEA/VOMITING Paroxetine HCl (Paxil Tab*) 10 mg PO DAILY [facility] Last Admin: 08/04/18 09:37 Dose: 10 mg Prednisone (Deltasone Tab*) 80 mg PO DAILY [facility] Last Admin: 08/04/18 09:41 Dose: 80 mg Propranolol HCl (Inderal Tab*) 40 mg PO DAILY [facility] Last Admin: 08/04/18 09:42 Dose: 40 mg Objective: [] Vital Signs Temp Pulse Resp BP Pulse Ox 97.7 F 66 24 116/44 93 08/04/18 04:00 08/04/18 04:00 08/04/18 04:00 08/04/18 04:00 08/04/18 04:00 Exam: Gen: Fatigued appearing 77 yo female in NAD HEENT: MMM, aisha-orbital edema CV: RRR, no m/r/g Resp: CTA, no w/c/r Abd: soft, nonTTP Ext: trace LE edema Skin: mild jaundice Assessment: [77 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 Now on Prednisone 1 mg/kg, Hgb stable today after transfusion] Plan: [1. AIHA - discharge today on Pred 80 - received 2U PRBCs 08/02/18, check CBC Monday - plan for rituximab starting next week as an outpatient 2. Edema 2nd to steroids, follow.
[2018-08-04 10:39] VITALS: BP 131/58
--- NOTE | 2018-08-04 10:41 | DS ---
DISCHARGE SUMMARY: DATE OF ADMISSION: 08/02/18 DATE OF DISCHARGE: 08/04/18 DISCHARGE DIAGNOSES: 1. Autoimmune hemolytic anemia. 2. Need for red blood transfusions. HOSPITAL COURSE: Please see history and present for details of presentation. A 77- year-old female with a history of autoimmune hemolytic anemia. She had been on prednisone, but then relapsed after steroids were tapered off. She came with a hemoglobin of 5.5 and profound fatigue. She was started on prednisone 1 mg/kg and given 2 units of packed red blood cells. She responded well to the 2 units and hemoglobin over the last 2 days has been stable to trending down slowly. She feels better after the transfusion and feels she can manage at home. Plan will be to discharge home on steroids and follow up in clinic next week for IV rituximab. Retic count is stable at 23%, hemoglobin is 8.0 today, 8.1 yesterday. Other complaint this morning is periorbital edema that I think is secondary to the steroids and IV fluids. MEDICATIONS ON DISCHARGE: 1. Amlodipine 5 mg p.o. daily. 2. Lipitor 40 mg p.o. daily. 3. Folic acid 1 g per day. 4. Levothyroxine 125 mcg per day. 5. Paroxetine 10 mg daily. 6. Prednisone 80 mg p.o. daily. 7. Pantoprazole 40 mg daily. 8. Tylenol with Codeine as needed 1 tab q.4 hours. 9. Calcium 500 mg a day. 10. Vitamin D 1000 mcg a day. 11. Fish oil 1000 a day. 12. Meclizine 25 mg as needed. New medications in addition to the prednisone will be omeprazole 40 mg p.o. daily for GI prophylaxis. We will have her get a CBC on Monday and can transfuse as an outpatient as needed, rituximab will be planned later in the week. Follow up with Dr. Santos on 08/10/18. [id number]/[facility] #: [id number] [facility] SYSTEMCoreen
== END 2018-08-04 11:09 | disposition home or self-care (01) | DRG 810 ==
LOC: MED 15:50
PROVIDERS: ADMIT Internal Medicine Hematology & Oncology; ATTEND Internal Medicine Hematology & Oncology
PROC: 30233N1 Transfusion of Nonautologous Red Blood Cells into Peripheral Vein, Percutaneous Approach (ICD-10-PCS; principal; 2018-08-02)
DX: D59.1 Other autoimmune hemolytic anemias (principal); E03.9 Hypothyroidism, unspecified; E78.5 Hyperlipidemia, unspecified; I10 Essential (primary) hypertension; F32.9 Major depressive disorder, single episode, unspecified; Z90.49 Acquired absence of other specified parts of digestive tract; H05.229 Edema of unspecified orbit; T38.0X5A Adverse effect of glucocorticoids and synthetic analogues, initial encounter; Y92.239 Unspecified place in hospital as the place of occurrence of the external cause; Z79.52 Long term (current) use of systemic steroids
CPT/HCPCS: 36415; 80053; 80074; 83615; 85025; 85027; 85045; 86078; 86850; 86900; 86901; 86922; 99222; 99232; 99239; A9270-GY; J1650; J2920; J7512; P9016

== ENCOUNTER 2018-10-02 08:37 | Inpatient (IN) | payer MEDICARE ==
[~2018-10-02 08:37] MED LIST: Buffered Lidocaine 1% SYRIN* 1 ML/SYRINGE INTRADERM ONE; Famotidine IV* 10 MG/ML 2 ML (20 mg) IV ONE; Lactated Ringers 1000 ML Bag* 1,000 ML IV SCH; Scopolamine 1.5 mg* PATCH TRANSDERM SCH
--- OUTSIDE RECORDS SUMMARY | 2018-10-02 08:41 | XMS REPORT | Continuity of Care Document ---
:1940 External Reference #:[id number] [facility] Care Team Providers Name Role Phone Yoli Albert MD Primary Care Physician Unavailable Payers Type Date Identification Numbers Payment Provider Subscriber Effective: 2018 Policy Number: [id number] Medicare Medina Baldwin PayID: [id number] [address] [place] [address] Effective: 2018 Policy Number: [facility] Medina Baldwin [id number] PayID: [id number] [address] [place] [address] Advance Directives Description No Information Available Problems Description No Information Family History Description No Information Available Social History Type Date Description Comments Sex Unknown Marital Status Tobacco Use Start: Unknown Patient has never smoked Smoking Status Reviewed: 09/24/18 Patient has never smoked Allergies, Adverse Reactions, Alerts Date Description Reaction Status Severity Comments 09/24/2018 Flagyl Active 09/24/2018 NSAIDs Active Medications Medication Date Status Form Strength Qnty SIG Indications Ordering Provider Omeprazole Active Capsules DR 20mg 30caps 2 by Sulaiman 019 mouth [place] every day , FACS Amlodipine Active Tablets 2.5mg 1 by Unknown Besylate 000 mouth twice a day Vitamin D High Active Capsules 1000Unit 1 by Unknown Potency 000 mouth every day Fish Oil Active Capsules 1000mg 1 tab by Unknown 000 mouth every morning Folic Acid 0 Active Tablets 1mg 1 by Unknown 000 mouth every day Lipitor 0 Active Tablets 20mg 1 every Unknown 000 at night Paxil 0 Active Tablets 10mg 1 by Unknown 000 mouth every day Probiotic 0 Active Capsules 1 by Unknown 000 mouth every day Propranolol 00/00/0 Active Tablets 40mg take 1 Unknown HCL 000 tablet by mouth once a day Synthroid Active Tablets 125mcg 1 by Unknown 000 mouth every day Tums Active Chewtabs 500mg 2 as Unknown 000 needed for acid stomach Meclizine HCL Active Chewtabs 25mg 1 tab by Unknown 000 mouth three times a day as needed Prednisone Active Tablets 20mg 4 tabs Unknown 000 daily Acetaminophen- Active Tablets 300-30mg 1 every 6 Unknown Codeine #3 000 hours as needed Immunizations Description No Information Available Vital Signs Date Vital Result Comment 09/24/2018 11:10am Height 68 inches 5'8" Weight 185.00 lb Heart Rate 72 /min BP Systolic 136 mmHg BP Diastolic 76 mmHg Respiratory Rate 18 /min Body Temperature 99.2 F BMI (Body Mass Index) 28.1 kg/m2 Results Test Date Facility Test Result H/L Range Note BUN/Creat/GFR 09/21/2018 [facility] Poc Blood Urea 16 mg/dL N 8-[address] [place] [address] [phone] Poc Creatinine 0.8 mg/dL N 0.6-1.3 1 Poc BUN/Creatinine Ratio 20.0 N 8-20 Egfr Non- 69.6 >60 Egfr 84.2 >60 2 CBC Auto 09/20/2018 [facility] White Blood 24.0 10^3/uL High 3.5-10.[address] [place] [address] [phone] Red Blood Count 2.88 10^6/uL Low 4.00-5.40 Hemoglobin 10.6 g/dL Low 12.0-16.0 Hematocrit 32 % Low 35-47 Mean Corpuscular Volume 110 fL High 80-97 Mean Corpuscular Hemoglobin 37 pg High 27-31 Mean Corpuscular HGB Conc 34 g/dL N 31-36 Red Cell Distribution Width 18 % High 10.5-15 Platelet Count 413 10^3/uL N 150-450 Mean Platelet Volume 7.6 fL N 7.4-10.4 Abs Neutrophils 22.2 10^3/uL High 1.5-7.7 Abs Lymphocytes 0.6 10^3/uL Low 1.0-4.8 Abs Monocytes 1.3 10^3/uL High 0-0.8 Abs Eosinophils 0 10^3/uL N 0-0.6 Abs Basophils 0 10^3/uL N 0-0.2 Abs Nucleated RBC 0.7 10^3/uL Granulocyte % 92.2 % Lymphocyte % 2.3 % Monocyte % 5.4 % Eosinophil % 0 % Basophil % 0.1 % Nucleated Red Blood Cells % 2.9 CBC Auto 09/14/2018 [facility] White Blood 15.7 10^3/uL High 3.5-10.[address] [place] [address] [phone] Red Blood Count 3.09 10^6/uL Low 4.00-5.40 Hemoglobin 11.3 g/dL Low 12.0-16.0 Hematocrit 34 % Low 35-47 Mean Corpuscular Volume 109 fL High 80-97 Mean Corpuscular Hemoglobin 37 pg High 27-31 Mean Corpuscular HGB Conc 34 g/dL N 31-36 Red Cell Distribution Width 17 % High 10.5-15 Platelet Count 314 10^3/uL N 150-450 Mean Platelet Volume 7.5 fL N 7.4-10.4 Abs Neutrophils 12.9 10^3/uL High 1.5-7.7 Abs Lymphocytes 1.5 10^3/uL N 1.0-4.8 Abs Monocytes 1.2 10^3/uL High 0-0.8 Abs Eosinophils 0 10^3/uL N 0-0.6 Abs Basophils 0.1 10^3/uL N 0-0.2 Abs Nucleated RBC 0.2 10^3/uL Granulocyte % 81.9 % Lymphocyte % 9.4 % Monocyte % 7.9 % Eosinophil % 0.2 % Basophil % 0.6 % Nucleated Red Blood Cells % 1.5 CBC Auto 09/07/2018 [facility] White Blood 17.4 10^3/uL High 3.5-10.[address] [place] [address] [phone] Red Blood Count 3.12 10^6/uL Low 4.00-5.40 Hemoglobin 11.7 g/dL Low 12.0-16.0 Hematocrit 35 % N 35-47 Mean Corpuscular Volume 111 fL High 80-97 Mean Corpuscular Hemoglobin 37 pg High 27-31 Mean Corpuscular HGB Conc 34 g/dL N 31-36 Red Cell Distribution Width 18 % High 10.5-15 Platelet Count 324 10^3/uL N 150-450 Mean Platelet Volume 7.3 fL Low 7.4-10.4 Abs Neutrophils 14.6 10^3/uL High 1.5-7.7 Abs Lymphocytes 1.3 10^3/uL N 1.0-4.8 Abs Monocytes 1.4 10^3/uL High 0-0.8 Abs Eosinophils 0.1 10^3/uL N 0-0.6 Abs Basophils 0.1 10^3/uL N 0-0.2 Abs Nucleated RBC 0.4 10^3/uL Granulocyte % 83.8 % Lymphocyte % 7.4 % Monocyte % 8.2 % Eosinophil % 0.3 % Basophil % 0.3 % Nucleated Red Blood Cells % 2.5 Cell Morphology 09/07/2018 [facility] Polychromasia 2+ [address] [place] [address] [phone] CBC Auto Diff 08/31/2018 [facility] White Blood Count 15.1 High 3.5-[address] 10^3/uL 0.8 [place] [address] [phone] Red Blood Count 2.77 10^6/uL Low 4.00-5.40 Hemoglobin 10.3 g/dL Low 12.0-16.0 Hematocrit 31 % Low 35-47 Mean Corpuscular Volume 110 fL High 80-97 Mean Corpuscular Hemoglobin 37 pg High 27-31 Mean Corpuscular HGB Conc 34 g/dL N 31-36 Red Cell Distribution Width 23 % High 10.5-15 Platelet Count 262 10^3/uL N 150-450 Mean Platelet Volume 7.5 fL N 7.4-10.4 Abs Neutrophils 12.7 10^3/uL High 1.5-7.7 Abs Lymphocytes 1.0 10^3/uL N 1.0-4.8 Abs Monocytes 1.3 10^3/uL High 0-0.8 Abs Eosinophils 0.1 10^3/uL N 0-0.6 Abs Basophils 0.1 10^3/uL N 0-0.2 Manual Differential 08/31/2018 [facility] Immature 3 % N 0-[address] [place] [address] [phone] Neutrophil % 80 % Lymphocytes % 5 % Monocytes % 12 % Metamyelocytes % 3 % High 0-2 Nucleated Red Blood Cells/100 2 High 0-0 Macrocytosis 1+ Polychromasia 1+ Abs Neutrophils 12.5 10^3/uL High 1.5-7.7 Abs Lymphocytes 0.8 10^3/uL Low 1.0-4.8 Abs Monocytes 1.8 10^3/uL High 0-0.8 CBC Auto 08/24/2018 [facility] White Blood 17.8 10^3/uL High 3.5-10.[address] [place] [address] [phone] Red Blood Count 2.98 10^6/uL Low 4.00-5.40 Hemoglobin 11.0 g/dL Low 12.0-16.0 Hematocrit 31 % Low 35-47 Mean Corpuscular Volume 105 fL High 80-97 Mean Corpuscular Hemoglobin 37 pg High 27-31 Mean Corpuscular HGB Conc 35 g/dL N 31-36 Red Cell Distribution Width 25 % High 10.5-15 Platelet Count 247 10^3/uL N 150-450 Mean Platelet Volume 7.4 fL N 7.4-10.4 Abs Neutrophils 15.6 10^3/uL High 1.5-7.7 Abs Lymphocytes 0.7 10^3/uL Low 1.0-4.8 Abs Monocytes 1.5 10^3/uL High 0-0.8 Abs Eosinophils 0 10^3/uL N 0-0.6 Abs Basophils 0 10^3/uL N 0-0.2 Abs Nucleated RBC 0.3 10^3/uL Granulocyte % 87.5 % Lymphocyte % 3.9 % Monocyte % 8.3 % Eosinophil % 0.1 % Basophil % 0.2 % Nucleated Red Blood Cells % 1.5 Manual Differential 08/17/2018 [facility] Neutrophil % 88 % [address] [place] [address] [phone] Lymphocytes % 6 % Monocytes % 5 % Eosinophils % 1 % Basophil % 0 % Abs Neutrophils 12.1 10^3/uL High 1.5-7.7 Abs Lymphocytes 0.8 10^3/uL Low 1.0-4.8 Abs Monocytes 0.7 10^3/uL N 0-0.8 Abs Eosinophils 0.1 10^3/uL N 0-0.6 Abs Basophils 0 10^3/uL N 0-0.2 Polychromasia 2+ Basophilic Stippling 2+ Comments (SEE NOTE) 3 CBC Auto 08/17/2018 [facility] White Blood 13.7 10^3/uL High 3.5-10.[address] [place] [address] [phone] Red Blood Count 2.88 10^6/uL Low 4.00-5.40 Hemoglobin 10.2 g/dL Low 12.0-16.0 Hematocrit 30 % Low 35-47 Mean Corpuscular Volume 103 fL High 80-97 Mean Corpuscular Hemoglobin 36 pg High 27-31 Mean Corpuscular HGB Conc 35 g/dL N 31-36 Red Cell Distribution Width 28 % High 10.5-15 Platelet Count 317 10^3/uL N 150-450 Mean Platelet Volume 7.6 fL N 7.4-10.4 Abs Neutrophils 11.3 10^3/uL High 1.5-7.7 Comp Metabolic Panel 08/10/2018 [facility] Sodium 137 mmol/L N 135-[address] [place] [address] [phone] Potassium 4.3 mmol/L N 3.5-5.0 Chloride 102 mmol/L N 101-111 Co2 Carbon Dioxide 29 mmol/L N 22-32 Anion Gap 6 mmol/L N 2-11 Glucose 232 mg/dL High 70-100 Blood Urea Nitrogen 22 mg/dL N 6-24 Creatinine 0.91 mg/dL N 0.51-0.95 BUN/Creatinine Ratio 24.2 High 8-20 Calcium 9.3 mg/dL N 8.6-10.3 Total Protein 5.7 g/dL Low 6.4-8.9 Albumin 3.9 g/dL N 3.2-5.2 Globulin 1.8 g/dL Low 2-4 Albumin/Globulin Ratio 2.2 N 1-3 Total Bilirubin 4.30 mg/dL High 0.2-1.0 Alkaline Phosphatase 50 U/L N 34-104 Alt 16 U/L N 7-52 Ast 13 U/L N 13-39 Egfr Non- 59.9 >60 Egfr 72.5 >60 4 CBC Auto 08/10/2018 [facility] Red Blood 3.01 10^6/uL Low 4.00 -5.[address] [place] [address] [phone] Hemoglobin 10.5 g/dL Low 12.0-16.0 Hematocrit 31 % Low 35-47 Mean Corpuscular Volume 102 fL High 80-97 Mean Corpuscular Hemoglobin 35 pg High 27-31 Mean Corpuscular HGB Conc 35 g/dL N 31-36 Platelet Count 324 10^3/uL N 150-450 Mean Platelet Volume 8.0 fL N 7.4-10.4 Abs Neutrophils 10.6 10^3/uL High 1.5-7.7 White Blood Count 13.9 10^3/uL High 3.5-10.8 Red Cell Distribution Width 30 % High 10.5-15 Abs Lymphocytes 1.7 10^3/uL N 1.0-4.8 Abs Monocytes 1.5 10^3/uL High 0-0.8 Abs Eosinophils 0 10^3/uL N 0-0.6 Abs Basophils 0 10^3/uL N 0-0.2 Abs Nucleated RBC 0.1 10^3/uL Granulocyte % 76.3 % Lymphocyte % 12.5 % Monocyte % 10.8 % Eosinophil % 0 % Basophil % 0.4 % Nucleated Red Blood Cells % 0.6 CBC Auto 08/06/2018 [facility] White Blood 17.9 10^3/uL High 3.5-10.[address] [place] [address] [phone] Red Blood Count 3.05 10^6/uL Low 4.00-5.40 Hemoglobin 10.7 g/dL Low 12.0-16.0 Hematocrit 31 % Low 35-47 Mean Corpuscular Volume 103 fL High 80-97 Mean Corpuscular Hemoglobin 35 pg High 27-31 Mean Corpuscular HGB Conc 34 g/dL N 31-36 Red Cell Distribution Width 34 % High 10.5-15 Platelet Count 306 10^3/uL N 150-450 Mean Platelet Volume 8.0 fL N 7.4-10.4 Abs Neutrophils 14.1 10^3/uL High 1.5-7.7 Abs Lymphocytes 2.3 10^3/uL N 1.0-4.8 Abs Monocytes 1.4 10^3/uL High 0-0.8 Abs Eosinophils 0 10^3/uL N 0-0.6 Abs Basophils 0.1 10^3/uL N 0-0.2 Abs Nucleated RBC 0.4 10^3/uL Granulocyte % 78.8 % Lymphocyte % 12.6 % Monocyte % 8.0 % Eosinophil % 0 % Basophil % 0.6 % Nucleated Red Blood Cells % 2.3 Cell Morphology 08/06/2018 [facility] Polychromasia 3+ [address] [place] [address] [phone] CBC Auto Diff 07/18/2018 [facility] White Blood Count 8.4 N 3.5-[address] 10^3/uL .8 [place] [address] [phone] Red Blood Count 4.54 10^6/uL N 4.00-5.40 Hemoglobin 13.7 g/dL N 12.0-16.0 Hematocrit 39 % N 35-47 Mean Corpuscular Volume 85 fL N 80-97 Mean Corpuscular Hemoglobin 30 pg N 27-31 Mean Corpuscular HGB Conc 35 g/dL N 31-36 Red Cell Distribution Width 15 % N 10.5-15 Platelet Count 288 10^3/uL N 150-450 Mean Platelet Volume 8.0 fL N 7.4-10.4 Abs Neutrophils 5.1 10^3/uL N 1.5-7.7 Abs Lymphocytes 1.9 10^3/uL N 1.0-4.8 Abs Monocytes 1.1 10^3/uL High 0-0.8 Abs Eosinophils 0.2 10^3/uL N 0-0.6 Abs Basophils 0.1 10^3/uL N 0-0.2 Abs Nucleated RBC 0.1 10^3/uL Granulocyte % 60.7 % N 38-83 Lymphocyte % 22.7 % Low 25-47 Monocyte % 13.1 % High 0-7 Eosinophil % 2.8 % N 0-6 Basophil % 0.7 % N 0-2 Nucleated Red Blood Cells % 0.8 CBC Auto Diff 06/07/2018 [facility] White Blood 6.4 10^3/uL N 3.5-10.[address] [place] [address] [phone] Red Blood Count 4.58 10^6/uL N 4.00-5.40 Hemoglobin 14.4 g/dL N 12.0-16.0 Hematocrit 42 % N 35-47 Mean Corpuscular Volume 92 fL N 80-97 Mean Corpuscular Hemoglobin 32 pg High 27-31 Mean Corpuscular HGB Conc 34 g/dL N 31-36 Red Cell Distribution Width 15 % N 10.5-15 Platelet Count 261 10^3/uL N 150-450 Mean Platelet Volume 8.0 um3 N 7.4-10.4 Abs Neutrophils 4.2 10^3/uL N 1.5-7.7 Abs Lymphocytes 1.3 10^3/uL N 1.0-4.8 Abs Monocytes 0.7 10^3/uL N 0-0.8 Abs Eosinophils 0.1 10^3/uL N 0-0.6 Abs Basophils 0 10^3/uL N 0-0.2 Abs Nucleated RBC 0 10^3/uL Granulocyte % 65.6 % N 38-83 Lymphocyte % 20.7 % Low 25-47 Monocyte % 11.7 % High 0-7 Eosinophil % 1.5 % N 0-6 Basophil % 0.5 % N 0-2 Nucleated Red Blood Cells % 0.2 Laboratory test 05/31/2018 [facility] Cortisol 20.58 g/dL [address] [place] [address] [phone] CBC Auto Diff 05/17/2018 [facility] Abs Neutrophils 7.4 10^3/uL N 1.5-7. [address] [place] [address] [phone] Abs Lymphocytes 1.4 10^3/uL N 1.0-4.8 Abs Monocytes 1.0 10^3/uL High 0-0.8 Abs Eosinophils 0.1 10^3/uL N 0-0.6 Abs Basophils 0 10^3/uL N 0-0.2 Abs Nucleated RBC 0 10^3/uL Granulocyte % 74.4 % N 38-83 Lymphocyte % 13.9 % Low 25-47 Monocyte % 9.9 % High 0-7 Eosinophil % 1.3 % N 0-6 Basophil % 0.5 % N 0-2 Nucleated Red Blood Cells % 0.1 White Blood Count 9.9 10^3/uL N 3.5-10.8 Red Blood Count 4.45 10^6/uL N 4.00-5.40 Hemoglobin 14.4 g/dL N 12.0-16.0 Hematocrit 42 % N 35-47 Mean Corpuscular Volume 94 fL N 80-97 Mean Corpuscular Hemoglobin 32 pg High 27-31 Mean Corpuscular HGB Conc 34 g/dL N 31-36 Red Cell Distribution Width 15 % N 10.5-15 Platelet Count 255 10^3/uL N 150-450 Mean Platelet Volume 7.9 um3 N 7.4-10.4 CBC Auto 04/19/2018 [facility] White Blood 15.3 10^3/uL High 3.5-10.[address] [place] [address] [phone] Red Blood Count 4.26 10^6/uL N 4.00-5.40 Hemoglobin 14.4 g/dL N 12.0-16.0 Hematocrit 42 % N 35-47 Mean Corpuscular Volume 97 fL N 80-97 Mean Corpuscular Hemoglobin 34 pg High 27-31 Mean Corpuscular HGB Conc 35 g/dL N 31-36 Red Cell Distribution Width 16 % High 10.5-15 Platelet Count 329 10^3/uL N 150-450 Mean Platelet Volume 7.2 um3 Low 7.4-10.4 Abs Neutrophils 12.7 10^3/uL High 1.5-7.7 Abs Lymphocytes 1.2 10^3/uL N 1.0-4.8 Abs Monocytes 1.2 10^3/uL High 0-0.8 Abs Eosinophils 0.1 10^3/uL N 0-0.6 Abs Basophils 0.1 10^3/uL N 0-0.2 Abs Nucleated RBC 0 10^3/uL Granulocyte % 83.1 % High 38-83 Lymphocyte % 8.1 % Low 25-47 Monocyte % 7.9 % High 0-7 Eosinophil % 0.5 % N 0-6 Basophil % 0.4 % N 0-2 Nucleated Red Blood Cells % 0.1 CBC Auto 04/03/2018 [facility] White Blood 18.2 10^3/uL High 3.5-10.[address] [place] [address] [phone] Red Blood Count 4.29 10^6/uL N 4.00-5.40 Hemoglobin 14.4 g/dL N 12.0-16.0 Hematocrit 41 % N 35-47 Mean Corpuscular Volume 95 fL N 80-97 Mean Corpuscular Hemoglobin 34 pg High 27-31 Mean Corpuscular HGB Conc 35 g/dL N 31-36 Red Cell Distribution Width 15 % N 10.5-15 Platelet Count 283 10^3/uL N 150-450 Mean Platelet Volume 7.3 um3 Low 7.4-10.4 Abs Neutrophils 15.2 10^3/uL High 1.5-7.7 Abs Lymphocytes 1.7 10^3/uL N 1.0-4.8 Abs Monocytes 1.2 10^3/uL High 0-0.8 Abs Eosinophils 0 10^3/uL N 0-0.6 Abs Basophils 0.1 10^3/uL N 0-0.2 Abs Nucleated RBC 0 10^3/uL Granulocyte % 83.7 % High 38-83 Lymphocyte % 9.1 % Low 25-47 Monocyte % 6.7 % N 0-7 Eosinophil % 0.2 % N 0-6 Basophil % 0.3 % N 0-2 Nucleated Red Blood Cells % 0.1 CBC Auto 03/20/2018 [facility] White Blood 17.1 10^3/uL High 3.5-10.[address] [place] [address] [phone] Red Blood Count 4.26 10^6/uL N 4.00-5.40 Hemoglobin 14.3 g/dL N 12.0-16.0 Hematocrit 41 % N 35-47 Mean Corpuscular Volume 96 fL N 80-97 Mean Corpuscular Hemoglobin 34 pg High 27-31 Mean Corpuscular HGB Conc 35 g/dL N 31-36 Red Cell Distribution Width 15 % N 10.5-15 Platelet Count 198 10^3/uL N 150-450 Mean Platelet Volume 7.2 um3 Low 7.4-10.4 Abs Neutrophils 14.0 10^3/uL High 1.5-7.7 Abs Lymphocytes 1.9 10^3/uL N 1.0-4.8 Abs Monocytes 1.1 10^3/uL High 0-0.8 Abs Eosinophils 0 10^3/uL N 0-0.6 Abs Basophils 0 10^3/uL N 0-0.2 Abs Nucleated RBC 0.1 10^3/uL Granulocyte % 82.0 % N 38-83 Lymphocyte % 11.0 % Low 25-47 Monocyte % 6.6 % N 0-7 Eosinophil % 0.3 % N 0-6 Basophil % 0.1 % N 0-2 Nucleated Red Blood Cells % 0.3 CBC Auto 03/06/2018 [facility] White Blood 19.4 10^3/uL High 3.5-10.[address] [place] [address] [phone] Red Blood Count 4.46 10^6/uL N 4.00-5.40 Hemoglobin 15.1 g/dL N 12.0-16.0 Hematocrit 43 % N 35-47 Mean Corpuscular Volume 96 fL N 80-97 Mean Corpuscular Hemoglobin 34 pg High 27-31 Mean Corpuscular HGB Conc 35 g/dL N 31-36 Red Cell Distribution Width 17 % High 10.5-15 Platelet Count 346 10^3/uL N 150-450 Mean Platelet Volume 7.6 um3 N 7.4-10.4 Abs Neutrophils 16.0 10^3/uL High 1.5-7.7 Abs Lymphocytes 1.8 10^3/uL N 1.0-4.8 Abs Monocytes 1.5 10^3/uL High 0-0.8 Abs Eosinophils 0 10^3/uL N 0-0.6 Abs Basophils 0.1 10^3/uL N 0-0.2 Abs Nucleated RBC 0.1 10^3/uL Granulocyte % 82.3 % N 38-83 Lymphocyte % 9.2 % Low 25-47 Monocyte % 7.9 % High 0-7 Eosinophil % 0.1 % N 0-6 Basophil % 0.5 % N 0-2 Nucleated Red Blood Cells % 0.3 CBC Auto Diff 02/08/2018 [facility] White Blood 9.5 10^3/uL N 3.5-10.[address] [place] [address] [phone] Red Blood Count 3.27 10^6/uL Low 4.00-5.40 Hemoglobin 10.9 g/dL Low 12.0-16.0 Hematocrit 31 % Low 35-47 Mean Corpuscular Volume 94 fL N 80-97 Mean Corpuscular Hemoglobin 33 pg High 27-31 Mean Corpuscular HGB Conc 35 g/dL N 31-36 Red Cell Distribution Width 18 % High 10.5-15 Platelet Count 350 10^3/uL N 150-450 Mean Platelet Volume 7.6 um3 N 7.4-10.4 Abs Neutrophils 5.3 10^3/uL N 1.5-7.7 Abs Lymphocytes 2.7 10^3/uL N 1.0-4.8 Abs Monocytes 1.3 10^3/uL High 0-0.8 Abs Eosinophils 0.2 10^3/uL N 0-0.6 Abs Basophils 0.1 10^3/uL N 0-0.2 Abs Nucleated RBC 0 10^3/uL Granulocyte % 55.4 % N 38-83 Lymphocyte % 28.3 % N 25-47 Monocyte % 13.7 % High 0-7 Eosinophil % 1.9 % N 0-6 Basophil % 0.7 % N 0-2 Nucleated Red Blood Cells % 0.4 CBC Auto Diff 02/01/2018 [facility] White Blood 7.9 10^3/uL N 3.5-10.[address] [place] [address] [phone] Red Blood Count 3.39 10^6/uL Low 4.0-5.4 Hemoglobin 11.3 g/dL Low 12.0-16.0 Hematocrit 32 % Low 35-47 Mean Corpuscular Volume 95 fL N 80-97 Mean Corpuscular Hemoglobin 34 pg High 27-31 Mean Corpuscular HGB Conc 35 g/dL N 31-36 Red Cell Distribution Width 17 % High 10.5-15 Platelet Count 353 10^3/uL N 150-450 Mean Platelet Volume 7.9 um3 N 7.4-10.4 Abs Neutrophils 4.7 10^3/uL N 1.5-7.7 Abs Lymphocytes 2.1 10^3/uL N 1.0-4.8 Abs Monocytes 0.9 10^3/uL High 0-0.8 Abs Eosinophils 0.2 10^3/uL N 0-0.6 Abs Basophils 0 10^3/uL N 0-0.2 Abs Nucleated RBC 0 10^3/uL Granulocyte % 59.6 % N 38-83 Lymphocyte % 26.5 % N 25-47 Monocyte % 11.1 % High 0-7 Eosinophil % 2.5 % N 0-6 Basophil % 0.3 % N 0-2 Nucleated Red Blood Cells % 0.2 Lipid Profile 02/01/2018 [facility] Triglycerides 133 mg/dL 6, 7 (Trig/Chol/HDL) [address] [place] [address] [phone] Cholesterol 123 mg/dL 8 HDL Cholesterol 37.9 mg/dL 9 LDL Cholesterol 59 mg/dL 10 Laboratory test 02/01/2018 [facility] Vitamin D 30.4 ng/mL N 20-50 [address] Total 25(Oh) [place] [address] [phone] Hemoglobin A1c < 3.5 % Low 4.0-5.6 12 CBC Auto Diff 01/25/2018 [facility] White Blood 8.9 10^3/uL N 3.5-10.[address] [place] [address] [phone] Red Blood Count 3.29 10^6/uL Low 4.0-5.4 Hemoglobin 11.2 g/dL Low 12.0-16.0 Hematocrit 31 % Low 35-47 Mean Corpuscular Volume 95 fL N 80-97 Mean Corpuscular Hemoglobin 34 pg High 27-31 Mean Corpuscular HGB Conc 36 g/dL N 31-36 Red Cell Distribution Width 18 % High 10.5-15 Platelet Count 356 10^3/uL N 150-450 Mean Platelet Volume 7.2 um3 Low 7.4-10.4 Abs Neutrophils 5.2 10^3/uL N 1.5-7.7 Abs Lymphocytes 2.3 10^3/uL N 1.0-4.8 Abs Monocytes 1.1 10^3/uL High 0-0.8 Abs Eosinophils 0.3 10^3/uL N 0-0.6 Abs Basophils 0.1 10^3/uL N 0-0.2 Abs Nucleated RBC 0 10^3/uL Granulocyte % 58.4 % N 38-83 Lymphocyte % 25.6 % N 25-47 Monocyte % 12.3 % High 0-7 Eosinophil % 3.0 % N 0-6 Basophil % 0.7 % N 0-2 Nucleated Red Blood Cells % 0.2 Protein 01/18/2018 [facility] Total 6.4 g/dL 6.3 - Electrophoresis [address] [facility] Protein(Pep) 7.9 [place] [address] [phone] Albumin 3.8 g/dL 3.4-4.7 Alpha-1 Globulin 0.3 g/dL 0.1-0.3 Alpha-2 Globulin 0.6 g/dL 0.6-1.0 Beta Globulin 0.7 g/dL 0.7-1.2 Gamma Globulin 1.1 g/dL 0.6-1.6 Albumin/Globulin Ratio 1.47 Impression See Comment 13 Laboratory 01/18/2018 [facility] Hepatitis B Nonreactive Nonreactive test finding 101 [facility] [place] [address] [phone] Hepatitis C Antibody Nonreactive Nonreactive Haptoglobin <14 mg/dL Abnormal 30 - 200 14 Hepatitis B 01/18/2018 [facility] Hepatitis B Not Immune Abnormal Immune Faizan AB Titer [address] [facility] [employer] [place] [address] [phone] Hep B Surf AB Level < 3.10 mIU/mL >12 Laboratory 01/18/2018 [facility] Hepatitis B Nonreactive Nonreactive test finding [address] [facility] [employer] [place] [address] [phone] Retic Count 01/18/2018 [facility] Retic Count 12.4 % High 0.5- 1.5 [address] [place] [address] [phone] Corrected Retic Count 8.5 % High 0.5-1.5 Maturation Factor Retic 1.5 Retic Index 5.70 Mean Retic Volume 104.1 Immature Retic Fraction 0.57 RBC Retic Count 3.32 10^6/uL Low 4.6-6.2 Hematocrit for Retic CNT 31 % Low 35-47 Laboratory test 01/18/2018 [facility] LDH 288 U/L High 140- 271 finding [address] [place] [address] [phone] Comp Metabolic 01/18/2018 [facility] Sodium 139 mmol/L N 139- 145 Panel [address] [place] [address] [phone] Potassium 3.9 mmol/L N 3.5-5.0 Chloride 104 mmol/L N 101-111 Co2 Carbon Dioxide 28 mmol/L N 22-32 Anion Gap 7 mmol/L N 2-11 Glucose 149 mg/dL High 70-100 Blood Urea Nitrogen 12 mg/dL N 6-24 Creatinine 1.00 mg/dL High 0.51-0.95 BUN/Creatinine Ratio 12.0 N 8-20 Calcium 9.3 mg/dL N 8.6-10.3 Total Protein 6.6 g/dL N 6.4-8.9 Albumin 4.3 g/dL N 3.2-5.2 Globulin 2.3 g/dL N 2-4 Albumin/Globulin Ratio 1.9 N 1-3 Total Bilirubin 2.60 mg/dL High 0.2-1.0 Alkaline Phosphatase 42 U/L N 34-104 Alt 12 U/L N 7-52 Ast 18 U/L N 13-39 Egfr Non- 53.8 >60 Egfr 69.1 >60 15 CBC Auto Diff 01/18/2018 [facility] White Blood 8.1 10^3/uL N 3.5-10.[address] [place] [address] [phone] Red Blood Count 3.33 10^6/uL Low 4.0-5.4 Hemoglobin 11.4 g/dL Low 12.0-16.0 Hematocrit 32 % Low 35-47 Mean Corpuscular Volume 95 fL N 80-97 Mean Corpuscular Hemoglobin 34 pg High 27-31 Mean Corpuscular HGB Conc 36 g/dL N 31-36 Red Cell Distribution Width 18 % High 10.5-15 Platelet Count 349 10^3/uL N 150-450 Mean Platelet Volume 7.4 um3 N 7.4-10.4 Abs Neutrophils 4.8 10^3/uL N 1.5-7.7 Abs Lymphocytes 2.0 10^3/uL N 1.0-4.8 Abs Monocytes 0.8 10^3/uL N 0-0.8 Abs Eosinophils 0.3 10^3/uL N 0-0.6 Abs Basophils 0.1 10^3/uL N 0-0.2 Abs Nucleated RBC 0 10^3/uL Granulocyte % 59.1 % N 38-83 Lymphocyte % 25.3 % N 25-47 Monocyte % 10.1 % High 0-7 Eosinophil % 4.0 % N 0-6 Basophil % 1.5 % N 0-2 Nucleated Red Blood Cells % 0.2 Direct Indirect 01/18/2018 [facility] Direct Antiglobulin 2+ Elias [address] Test (DC) [place] [address] [phone] Antibody Screen NEGATIVE 1 Radio Frequency Design Engineer: [id number] 2 Because ethnic data is not always readily available, this report includes an eGFR for both -Americans and non- Americans. The National Kidney Disease Education Program (NKDEP) does not endorse the use of the MDRD equation for patients that are not between the ages of 18 and 70, are , have extremes of body size, muscle mass, or nutritional status, or are non- or non-. According to the National Kidney Foundation, irrespective of diagnosis, the stage of the disease is based on the level of kidney function: Stage Description GFR(mL/min/1.73 m(2)) 1 Kidney damage with normal or decreased GFR 90 2 Kidney damage with mild decrease in GFR 60-89 3 Moderate decrease in GFR 30-59 4 Severe decrease in GFR 15-29 5 Kidney failure <15 (or dialysis) 3 BASOPHILIC STIPPLING PRESENT IN RED CELLS 4 Because ethnic data is not always readily available, this report includes an eGFR for both -Americans and non- Americans. The National Kidney Disease Education Program (NKDEP) does not endorse the use of the MDRD equation for patients that are not between the ages of 18 and 70, are , have extremes of body size, muscle mass, or nutritional status, or are non- or non-. According to the National Kidney Foundation, irrespective of diagnosis, the stage of the disease is based on the level of kidney function: Stage Description GFR(mL/min/1.73 m(2)) 1 Kidney damage with normal or decreased GFR 90 2 Kidney damage with mild decrease in GFR 60-89 3 Moderate decrease in GFR 30-59 4 Severe decrease in GFR 15-29 5 Kidney failure <15 (or dialysis) 5 AM 8.7-22.4 PM <10 6 [id number] FASTING 7 Desirable: <150 Borderline High: 150-199 High: 200-499 Very High: >500 8 Desirable: <200 Borderline High: 200-239 High: >239 9 Low: <40 Desirable: 40-60 High: >60 10 Desirable: <100 Near Optimal: 100-129 Borderline High: 130-159 High: 160-189 Very High: >189 11 [id number] FASTING 12 Therapeutic target for the treatment of diabetes mellitus patients is <7% HBA1C, and in selective patients <6.0%. Please refer to [place] Diabetes Association diabetic care guidelines for further information. 13 RESULT: No apparent monoclonal protein on serum electrophoresis. Test Performed by: [facility] [address] [place] [address] 14 Test Performed by: [place] [address] 15 Because ethnic data is not always readily available, this report includes an eGFR for both -Americans and non- Americans. The National Kidney Disease Education Program (NKDEP) does not endorse the use of the MDRD equation for patients that are not between the ages of 18 and 70, are , have extremes of body size, muscle mass, or nutritional status, or are non- or non-. According to the National Kidney Foundation, irrespective of diagnosis, the stage of the disease is based on the level of kidney function: Stage Description GFR(mL/min/1.73 m(2)) 1 Kidney damage with normal or decreased GFR 90 2 Kidney damage with mild decrease in GFR 60-89 3 Moderate decrease in GFR 30-59 4 Severe decrease in GFR 15-29 5 Kidney failure <15 (or dialysis) Procedures Description No Information Available Encounters Type Date Location Provider Dx Diagnosis Office Visit 02/19/2018 [facility] Monica Santos, D59.1 Other autoimmune 2:00p [facility] AT M.D. hemolytic anemias [place] R53.83 Other fatigue Plan of Treatment Future Appointment(s):10/02/2018 10:00 am - J[facility] Mack [facility] at [facility]10/02/2018 10:00 am - Sulaiman Kee MD, FACS at [facility]09/24/2018 - Sulaiman Kee MD, FACSD59.1 Other autoimmune hemolytic anemiasRecommendations:laparoscopic splenectomy
--- OUTSIDE RECORDS SUMMARY | 2018-10-02 08:41 | XMS REPORT | Continuity of Care Document ---
:1940 External Reference #:[id number] [facility] Care Team Providers Name Role Phone Yoli Albert MD Primary Care Physician Unavailable Payers Type Date Identification Numbers Payment Provider Subscriber Effective: 2018 Policy Number: [id number] Medicare Medina Baldwin PayID: [id number] [address] [place] [address] Effective: 2018 Policy Number: [facility] Medina Baldwin [id number] PayID: [id number] [address] [place] [address] Advance Directives Description No Information Available Problems Description No Information Family History Description No Information Available Social History Type Date Description Comments Sex Unknown Marital Status Tobacco Use Start: Unknown Patient has never smoked Smoking Status Reviewed: 10/01/18 Patient has never smoked Allergies, Adverse Reactions, [...] Available Vital Signs Date Vital Result Comment 10/01/2018 11:53am Heart Rate 76 /min Respiratory Rate 18 /min Body Temperature 99.4 F 09/24/2018 11:10am Height 68 inches 5'8" Weight 185.00 lb Heart Rate 72 /min BP Systolic 136 mmHg BP Diastolic 76 mmHg Respiratory Rate 18 /min Body Temperature 99.2 F BMI (Body Mass Index) 28.1 kg/m2 Results Test Date Facility Test Result H/L Range Note CBC Auto Diff 09/27/2018 [facility] White Blood 18.2 10^3/uL High 3.5-10.[address] [place] [address] [phone] Red Blood Count 2.94 10^6/uL Low 4.00-5.40 Hemoglobin 10.2 g/dL Low 12.0-16.0 Hematocrit 31 % Low 35-47 Mean Corpuscular Volume 105 fL High 80-97 Mean Corpuscular Hemoglobin 35 pg High 27-31 Mean Corpuscular HGB Conc 33 g/dL N 31-36 Red Cell Distribution Width 17 % High 10.5-15 Platelet Count 465 10^3/uL High 150-450 Mean Platelet Volume 7.7 fL N 7.4-10.4 Abs Neutrophils 16.5 10^3/uL High 1.5-7.7 Abs Lymphocytes 0.5 10^3/uL Low 1.0-4.8 Abs Monocytes 1.2 10^3/uL High 0-0.8 Abs Eosinophils 0 10^3/uL N 0-0.6 Abs Basophils 0 10^3/uL N 0-0.2 Abs Nucleated RBC 0.3 10^3/uL Granulocyte % 90.5 % Lymphocyte % 2.9 % Monocyte % 6.5 % Eosinophil % 0 % Basophil % 0.1 % Nucleated Red Blood Cells % 1.5 Basic Metabolic Panel 09/27/2018 [facility] Sodium 135 mmol/L N 135-[address] [place] [address] [phone] Potassium 4.7 mmol/L N 3.5-5.0 Chloride 99 mmol/L Low 101-111 Co2 Carbon Dioxide 28 mmol/L N 22-32 Anion Gap 8 mmol/L N 2-11 Glucose 372 mg/dL High 70-100 Blood Urea Nitrogen 16 mg/dL N 6-24 Creatinine 0.89 mg/dL N 0.51-0.95 BUN/Creatinine Ratio 18.0 N 8-20 Calcium 9.6 mg/dL N 8.6-10.3 Egfr Non- 61.5 >60 Egfr 74.4 >60 1 Type & Screen 09/27/2018 [facility] Patient Blood Type A Positive [address] [place] [address] [phone] Antibody Screen NEGATIVE BUN/Creat/GFR 09/21/2018 [facility] Poc Blood Urea 16 mg/dL N 8-[address] [place] [address] [phone] Poc Creatinine 0.8 mg/dL N 0.6-1.3 2 Poc BUN/Creatinine Ratio 20.0 N 8-20 Egfr Non- 69.6 >60 Egfr 84.2 >60 3 CBC Auto 09/20/2018 [facility] White Blood 24.0 10^3/uL High 3.5-10.[address] [place] [address] [phone] Red Blood Count 2.88 10^6/uL Low 4.00-5.40 [...] Blood Cells % 2.9 CBC Auto 09/14/2018 [facility] White Blood 15.7 10^3/uL High 3.5-10.[address] [place] [address] [phone] Red Blood Count 3.09 10^6/uL Low 4.00-5.40 [...] Blood Cells % 1.5 CBC Auto 09/07/2018 [facility] White Blood 17.4 10^3/uL High 3.5-10.[address] [place] [address] [phone] Red Blood Count 3.12 10^6/uL Low 4.00-5.40 [...] Blood Cells % 2.5 Cell Morphology 09/07/2018 [facility] Polychromasia 2+ [address] [place] [address] [phone] Manual Differential 08/31/2018 [facility] Immature 3 % N 0-[address] [address] [phone] Neutrophil % 80 % Lymphocytes % 5 % Monocytes % 12 % Metamyelocytes % 3 % High 0-2 Nucleated Red Blood Cells/100 2 High 0-0 Macrocytosis 1+ Polychromasia 1+ Abs Neutrophils 12.5 10^3/uL High 1.5-7.7 Abs Lymphocytes 0.8 10^3/uL Low 1.0-4.8 Abs Monocytes 1.8 10^3/uL High 0-0.8 CBC Auto 08/31/2018 [facility] White Blood 15.1 10^3/uL High 3.5-10.[address] [place] [address] [phone] Red Blood Count 2.77 10^6/uL Low 4.00-5.40 [...] 0-0.6 Abs Basophils 0.1 10^3/uL N 0-0.2 CBC Auto 08/24/2018 [facility] White Blood 17.8 10^3/uL High 3.5-10.[address] [place] [address] [phone] Red Blood Count 2.98 10^6/uL Low 4.00-5.40 [...] Red Blood Cells % 1.5 CBC Auto 08/17/2018 [facility] White Blood 13.7 10^3/uL High 3.5-10.[address] [place] [address] [phone] Red Blood Count 2.88 10^6/uL Low 4.00-5.40 [...] 7.4-10.4 Abs Neutrophils 11.3 10^3/uL High 1.5-7.7 Manual Differential 08/17/2018 [facility] Neutrophil % 88 % [address] [place] [address] [phone] Lymphocytes % 6 % Monocytes % 5 % Eosinophils % 1 % Basophil % 0 % Abs Neutrophils 12.1 10^3/uL High 1.5-7.7 Abs Lymphocytes 0.8 10^3/uL Low 1.0-4.8 Abs Monocytes 0.7 10^3/uL N 0-0.8 Abs Eosinophils 0.1 10^3/uL N 0-0.6 Abs Basophils 0 10^3/uL N 0-0.2 Polychromasia 2+ Basophilic Stippling 2+ Comments (SEE NOTE) 4 Comp Metabolic Panel 08/10/2018 [facility] Sodium 137 mmol/L N 135-145 [address] [place] [address] [phone] Potassium 4.3 mmol/L N 3.5-5.0 Chloride 102 [...] Egfr Non- 59.9 >60 Egfr 72.5 >60 5 CBC Auto 08/10/2018 [facility] Red Blood 3.01 10^6/uL Low 4.00 -5.[address] [place] [address] [phone] Hemoglobin 10.5 g/dL Low 12.0-16.0 Hematocrit 31 [...] Blood Cells % 0.6 CBC Auto 08/06/2018 [facility] White Blood 17.9 10^3/uL High 3.5-10.[address] [place] [address] [phone] Red Blood Count 3.05 10^6/uL Low 4.00-5.40 [...] Blood Cells % 2.3 Cell Morphology 08/06/2018 [facility] Polychromasia 3+ [address] [place] [address] [phone] CBC Auto Diff 07/18/2018 [facility] White Blood Count 8.4 N 3.5-[address] 10^3/uL .8 [place] [address] [phone] Red Blood Count 4.54 10^6/uL N 4.00-5.40 [...] Cells % 0.8 CBC Auto Diff 06/07/2018 [facility] White Blood 6.4 10^3/uL N 3.5-10.[address] [place] [address] [phone] Red Blood Count 4.58 10^6/uL N 4.00-5.40 [...] Blood Cells % 0.2 Laboratory test 05/31/2018 [facility] Cortisol 20.58 g/dL [address] [place] [address] [phone] CBC Auto Diff 05/17/2018 [facility] Abs Neutrophils 7.4 10^3/uL N 1.5-7. [address] [place] [address] [phone] Abs Lymphocytes 1.4 10^3/uL N 1.0-4.8 Abs [...] 7.9 um3 N 7.4-10.4 CBC Auto 04/19/2018 [facility] White Blood 15.3 10^3/uL High 3.5-10.[address] [place], [place] [address] [phone] Red Blood Count 4.26 10^6/uL N 4.00-5.40 [...] Blood Cells % 0.1 CBC Auto 04/03/2018 [facility] White Blood 18.2 10^3/uL High 3.5-10.[address] [place] [address] [phone] Red Blood Count 4.29 10^6/uL N 4.00-5.40 [...] Blood Cells % 0.1 CBC Auto 03/20/2018 [facility] White Blood 17.1 10^3/uL High 3.5-10.[address] [place] [address] [phone] Red Blood Count 4.26 10^6/uL N 4.00-5.40 [...] Blood Cells % 0.3 CBC Auto 03/06/2018 [facility] White Blood 19.4 10^3/uL High 3.5-10.[address] [place] [address] [phone] Red Blood Count 4.46 10^6/uL N 4.00-5.40 [...] Cells % 0.3 CBC Auto Diff 02/08/2018 [facility] White Blood 9.5 10^3/uL N 3.5-10.[address] [place] [address] [phone] Red Blood Count 3.27 10^6/uL Low 4.00-5.40 [...] Cells % 0.4 CBC Auto Diff 02/01/2018 [facility] White Blood 7.9 10^3/uL N 3.5-10.[address] [place] [address] [phone] Red Blood Count 3.39 10^6/uL Low 4.0-5.4 [...] Blood Cells % 0.2 Lipid Profile 02/01/2018 [facility] Triglycerides 133 mg/dL 7, 8 (Trig/Chol/HDL) [address] [place] [address] [phone] Cholesterol 123 mg/dL 9 HDL Cholesterol 37.9 mg/dL 10 LDL Cholesterol 59 mg/dL 11 Laboratory test 02/01/2018 [facility] Vitamin D 30.4 ng/mL N 20-[address] Total 25(Oh) [place] [address] [phone] Hemoglobin A1c < 3.5 % Low 4.0-5.6 13 CBC Auto Diff 01/25/2018 [facility] White Blood 8.9 10^3/uL N 3.5-10.[address] [place] [address] [phone] Red Blood Count 3.29 10^6/uL Low 4.0-5.4 [...] Blood Cells % 0.2 Direct Indirect 01/18/2018 [facility] Direct Antiglobulin 2+ Elias [address] Test (DC) [place] [address] [phone] Antibody Screen NEGATIVE CBC Auto Diff 01/18/2018 [facility] White Blood 8.1 10^3/uL N 3.5-10.[address] [place] [address] [phone] Red Blood Count 3.33 10^6/uL Low 4.0-5.4 [...] 0-2 Nucleated Red Blood Cells % 0.2 Comp Metabolic Panel 01/18/2018 [facility] Sodium 139 mmol/L N 139-[address] [place] [address] [phone] Potassium 3.9 mmol/L N 3.5-5.0 Chloride 104 [...] Egfr Non- 53.8 >60 Egfr 69.1 >60 14 Laboratory test 01/18/2018 [facility] LDH 288 U/L High 140- [address] [place] [address] [phone] Retic Count 01/18/2018 [facility] Retic Count 12.4 % High 0.5- 1.5 [address] [place] [address] [phone] Corrected Retic Count 8.5 % High 0.5-1.5 Maturation Factor Retic 1.5 Retic Index 5.70 Mean Retic Volume 104.1 Immature Retic Fraction 0.57 RBC Retic Count 3.32 10^6/uL Low 4.6-6.2 Hematocrit for Retic CNT 31 % Low 35-47 Laboratory 01/18/2018 [facility] Hepatitis B Nonreactive Nonreactive test finding [address] [place] [address] [phone] Hepatitis B 01/18/2018 [facility] Hepatitis B Not Immune Abnormal Immune Faizan AB Titer [address] [place] [address] [phone] Hep B Surf AB Level < 3.10 mIU/mL >12 Laboratory 01/18/2018 [facility] Hepatitis B Nonreactive Nonreactive test finding [address] [place] [address] [phone] Hepatitis C Antibody Nonreactive Nonreactive Haptoglobin <14 mg/dL Abnormal 30 - 200 15 Protein 01/18/2018 [facility] Total 6.4 g/dL 6.3 - Electrophoresis [address] Protein(Pep) 7.9 [place] [address] [phone] Albumin 3.8 g/dL 3.4-4.7 Alpha-1 Globulin 0.3 g/dL 0.1-0.3 Alpha-2 Globulin 0.6 g/dL 0.6-1.0 Beta Globulin 0.7 g/dL 0.7-1.2 Gamma Globulin 1.1 g/dL 0.6-1.6 Albumin/Globulin Ratio 1.47 Impression See Comment 16 1 Because ethnic data is not always readily [...] 15-29 5 Kidney failure <15 (or dialysis) 2 Emergency Doctor: [id number] 3 Because ethnic data is not always readily [...] 15-29 5 Kidney failure <15 (or dialysis) 4 BASOPHILIC STIPPLING PRESENT IN RED CELLS 5 Because ethnic data is not always readily [...] 15-29 5 Kidney failure <15 (or dialysis) 6 AM 8.7-22.4 PM <10 7 [id number] FASTING 8 Desirable: <150 Borderline High: 150-199 High: 200-499 Very High: >500 9 Desirable: <200 Borderline High: 200-239 High: >239 10 Low: <40 Desirable: 40-60 High: >60 11 Desirable: <100 Near Optimal: 100-129 Borderline High: 130-159 High: 160-189 Very High: >189 12 [id number] FASTING 13 Therapeutic target for the treatment of diabetes mellitus patients is <7% HBA1C, and in selective patients <6.0%. Please refer to [place] Diabetes [employer] diabetic care guidelines for further information. 14 Because ethnic data is not always readily [...] 15-29 5 Kidney failure <15 (or dialysis) 15 Test Performed by: [facility] [address] [place] [address] 16 RESULT: No apparent monoclonal protein on serum electrophoresis. Test Performed by: [facility] - [address] [address] Procedures Description No Information Available Encounters Type Date Location Provider Dx Diagnosis Office Visit 09/24/2018 [facility] Sulaiman Kee, D59.1 Other autoimmune 11:00a Of Dominic RAZO, FACS hemolytic anemias Office Visit 02/19/2018 [facility] Monica Santos D59.1 Other autoimmune 2:00p [facility] AT M.D. hemolytic anemias [place] R53.83 Other fatigue Plan of Treatment Future Appointment(s):10/02/2018 10:00 am - Jayson Mack MD at [facility]10/02/2018 10:00 am - Sulaiman Kee MD, FACS at [facility]10/01/2018 - Evaristo Hernandez, PAD59.1 Other autoimmune hemolytic [id number] Cutaneous abscess of right hand
[2018-10-02] MEDS ORDERED: Bupivacaine 0.5% W/EPI SDV* 30 ML VIAL ONE (09:12)
[2018-10-02] MEDS ORDERED: Succinylcholine* 20 MG/ML 10 ML VIAL ONE (11:46)
[2018-10-02] MEDS ORDERED: Propofol* 10 MG/ML 20 ML BTL ONE ×2 (11:46→17:59)
[2018-10-02] MEDS ORDERED: Dexamethasone IV* 4 MG/ML 1 ML (4 MG) ONE (11:46)
[2018-10-02] MEDS ORDERED: DiMENhydriNATE IV* 50 MG/ML VIAL ONE (11:46)
[2018-10-02] MEDS ORDERED: Midazolam* 1 MG/ML 5 ML VIAL (5 MG) ONE (11:46)
[2018-10-02] MEDS ORDERED: Ondansetron INJ* 2 MG/ML VIAL ONE (11:46)
[2018-10-02] MEDS ORDERED: Lidocaine 2% PF * 5 ML VIAL ONE (11:46)
[2018-10-02] MEDS ORDERED: fentaNYL* 50 MCG/ML 2 ML VIAL (100 MCG VIAL) ONE ×3 (11:47→13:57)
[2018-10-02] MEDS ORDERED: ceFAZolin 2 GM PREMIX in ORs 2 GM/50 ML BAG IVPB ONE (12:25)
[2018-10-02] MEDS ORDERED: Scopolamine 1.5 mg* PATCH ONE (12:25)
[2018-10-02] MEDS ORDERED: Famotidine IV* 10 MG/ML 2 ML (20 mg) ONE (12:25)
[2018-10-02 12:33] LABS: ABS Basophils 0 10^3/ul (0-0.2); ABS Eosinophils 0 10^3/ul (0-0.6); ABS Lymphocytes 0.8 10^3/ul (1.0-4.8); ABS Monocytes 0.8 10^3/ul (0-0.8); ABS Neutrophils 12.8 10^3/ul (1.5-7.7); ABS Nucleated RBC 0.1 10^3/ul; Eosinophil % 0 %; Hematocrit 36 % (35-47); Hemoglobin 11.8 g/dl (12.0-16.0); Lymphocyte % 5.3 %; Mean Corpuscular HGB Conc 33 g/dl (31-36); Mean Corpuscular Hemoglobin 34 pg (27-31); Mean Corpuscular Volume 104 fL (80-97); Mean Platelet Volume 7.6 fL (7.4-10.4); Nucleated Red Blood Cells % 0.6; Platelet Count 484 10^3/ul (150-450); Red Blood Count 3.43 10^6/ul (4.00-5.40); Red Cell Distribution Width 17 % (10.5-15); White Blood Count 14.4 10^3/ul (3.5-10.8)
[2018-10-02] MEDS ORDERED: Rocuronium* 10 MG/ML VIAL ONE (13:18)
[2018-10-02] MEDS ORDERED: DiMENhydriNATE IV* 50 MG/ML VIAL IV PUSH PRN (14:37)
[2018-10-02] MEDS ORDERED: Acetaminophen IV 1GM/100ML * 1,000 MG/100 ML VIAL IVPB ONE (14:37)
[2018-10-02] MEDS ORDERED: Naloxone* 0.4 MG/ML 1 ML VIAL IV PRN (14:37)
--- NOTE | 2018-10-02 15:37 | OP ---
Operative Report - Blank - Operative Report Date of Operation: 10/02/18 Note: Brief Operative Note Preop Dx: Autoimmune hemolytic anemia Postop Dx: same Procedure: Laparoscopic splenectomy Anesthesia: GET Surgeon: Chilango Bilingual Patient Support Caseworker: MONA Hernandez; CHARBEL Montague Fluids: 2 liters crystalloid EBL: 50 ml Specimen: spleen Drains: none Findings: dictated
[2018-10-02] MEDS ORDERED: Lactated Ringers 1000 ML Bag* 1,000 ML IV ONE (15:39)
[2018-10-02] MEDS ORDERED: Acetaminophen TAB* 325 MG PO PRN (15:41)
[2018-10-02] MEDS ORDERED: HYDROmorphone INJ1* 1 MG/ML SYRINGE IV SLOW PU PRN ×2 (15:44)
[2018-10-02] MEDS ORDERED: Ondansetron INJ* 2 MG/ML VIAL IV PRN (15:45)
[2018-10-02] MEDS ORDERED: HYDROmorphone INJ1* 1 MG/ML SYRINGE ONE (16:00)
[2018-10-02] MEDS: HYDROmorphone INJ1* 1 MG/ML SYRINGE IV PRN ×5 (16:01→17:32)
[2018-10-02] MEDS ORDERED: Acetaminophen IV 1GM/100ML * 100 ML ONE (16:19)
[2018-10-02] MEDS: Propranolol TAB* 40 MG PO SCH (21:44)
[2018-10-02] MEDS: amLODIPine TAB* 5 MG PO SCH (21:44)
[2018-10-02] MEDS: Pantoprazole TAB * 40 MG TAB PO SCH (21:44)
[2018-10-02] MEDS: predniSONE TAB* 20 MG PO SCH (21:44)
--- NOTE | 2018-10-02 22:35 | OP ---
CC: Monica Santos MD; Yoli Albert MD * DATE OF OPERATION: 10/02/18 - ROOM #334 DATE OF : 40 SURGEON: Sulaiman Kee MD GEOLOGICAL MANAGER: MONA Mejia ANESTHESIOLOGIST: Dayana Rao MD ANESTHESIA: General endotracheal. PRE-OP DIAGNOSIS: Hemolytic anemia. POST-OP DIAGNOSIS: Hemolytic anemia. OPERATIVE PROCEDURE: Laparoscopic splenectomy. ESTIMATED BLOOD LOSS: 50 mL. IV FLUIDS: 2 L of crystalloid. SPECIMENS: Spleen. DRAINS: None. COMPLICATIONS: None. COUNTS: The instrument, needle, and sponge counts were correct. DESCRIPTION OF PROCEDURE: The patient was brought to the operating room, placed on the table supine. Sequential compression devices were placed on both lower extremities. General anesthesia was administered. Matias catheter was placed. The patient was positioned in a modified right decubitus using the beanbag. She was positioned and padded appropriately. She was then administered intravenous antibiotics. She was prepped and draped in the usual sterile fashion and a time- out was performed. Local anesthetic was infiltrated into the skin and soft tissue and entry to the abdomen was through a transumbilical and vertical incision using open technique. After accessing the peritoneal cavity, a 12-mm trocar was placed and carbon dioxide was insufflated to a pressure of 15 mmHg. Under direct visualization, additional trocars were placed in line from the subxiphoid to the left subcostal region laterally. The inspection of the spleen revealed an abnormal irregular color with some portions appearing inflamed. The dissection proceeded with mobilization of the splenic flexure of the colon away from the lower pole of the spleen using LigaSure. Dissection then proceeded along the short gastrics laterally freeing the gastrosplenic ligament completely. After retracting the stomach medially, the splenic artery was visualized. Two main branches of this were each dissected out using a combination of sharp and blunt dissection and these were individually ligated with LigaSure close to the hilum. Separately, the splenic vein was identified again isolated with sharp and blunt dissection and again ligated with LigaSure. Remaining attachments to the spleen were also divided with LigaSure until the organ was completely freed. An endoscopic retrieval bag was utilized to contain the spleen and this was then drawn up through a muscle splitting incision created in the most lateral and most inferior 5-mm port and then the bag was exteriorized. The spleen was morcellated and removed. The wound was then closed in two layers with 0 Vicryl to approximate the muscle. Inspection of the area of dissection then revealed that hemostasis was excellent. At an area on the fundus of the stomach which was closest to the spleen, there was a concern more potential thermal injury and therefore, the site was imbricated taking seromuscular bites of the stomach using a 2-0 silk in a [id number] fashion to oversew this area. Having assured hemostasis, ports were then removed under direct visualization. Carbon dioxide was released. The umbilical wound was closed with 0 Vicryl in interrupted fashion to approximate the fascia. The skin incisions were then closed with 4-0 Monocryl in subcuticular fashion and Steri- Strips were applied. The patient tolerated the procedure well. She was subsequently extubated and transferred to the recovery room in a stable condition. [id number]/CPS #: [id number] TOVA
[2018-10-03] MEDS: Levothyroxine TAB* 125 MCG TAB PO SCH (05:56)
[2018-10-03 06:51] LABS: ABS Basophils 0.1 10^3/ul (0-0.2); ABS Eosinophils 0 10^3/ul (0-0.6); ABS Lymphocytes 0.7 10^3/ul (1.0-4.8); ABS Monocytes 1.5 10^3/ul (0-0.8); ABS Nucleated RBC 0.1 10^3/ul; Eosinophil % 0.1 %; Hematocrit 33 % (35-47); Hemoglobin 10.6 g/dl (12.0-16.0); Lymphocyte % 4.4 %; Mean Corpuscular HGB Conc 32 g/dl (31-36); Mean Corpuscular Hemoglobin 34 pg (27-31); Mean Corpuscular Volume 106 fL (80-97); Mean Platelet Volume 8.1 fL (7.4-10.4); Nucleated Red Blood Cells % 0.8; Platelet Count 371 10^3/ul (150-450); Red Blood Count 3.08 10^6/ul (4.00-5.40); Red Cell Distribution Width 17 % (10.5-15); White Blood Count 16.3 10^3/ul (3.5-10.8)
[2018-10-03 06:55] LABS: Calcium 8.9 mg/dL (8.6-10.3); Potassium 4.6 mmol/L (3.5-5.0)
[2018-10-03 07:00] LABS: BUN/Creatinine Ratio 14.1 (8-20); EGFR African American 78.3 (>60); EGFR Non-African American 64.7 (>60)
[2018-10-03] MEDS ORDERED: Sulfamethox/Trimethoprim SS 400/80* TAB PO SCH (09:00)
[2018-10-03] MEDS: PARoxetine HCL TAB* 10 MG PO SCH (09:49)
[2018-10-03] MEDS: predniSONE TAB* 20 MG PO SCH ×3 (09:49→21:11)
[2018-10-03] MEDS: Pantoprazole TAB * 40 MG TAB PO SCH ×2 (09:49→21:11)
[2018-10-03] MEDS: amLODIPine TAB* 5 MG PO SCH ×2 (09:49→21:11)
[2018-10-03] MEDS: Acetaminop/Codeine 30 MG TAB* 1 TAB (300 MG/30 MG) PO PRN ×2 (09:57→21:11)
--- NOTE | 2018-10-03 11:30 | PN ---
Progress Note - Progress Note Date of Service: 10/03/18 SOAP: Subjective: [POD #1 s/p splenectomy. Reports that she is doing well. Abdominal pain with movement, but seems comfortable at rest. Eating and drinking well.] Objective: [ Acetaminophen (Tylenol Tab*) 650 mg PO Q4H PRN PRN Reason: mild pain or fever Last Admin: 10/03/18 06:01 Dose: 650 mg Acetaminophen/Codeine Phosphate (Tylenol/Codeine 30 Mg Tab*) 1 tab PO Q4H PRN PRN Reason: moderate pain Last Admin: 10/03/18 09:57 Dose: 1 tab Amlodipine Besylate (Norvasc Tab*) 2.5 mg PO BID [facility] Last Admin: 10/03/18 09:49 Dose: 2.5 mg Hydromorphone HCl (Dilaudid Inj1s*) 0.5 mg IV SLOW PU Q4H PRN PRN Reason: moderate pain Hydromorphone HCl (Dilaudid Inj1s*) 1 mg IV SLOW PU Q4H PRN PRN Reason: SEVERE PAIN Levothyroxine Sodium (Synthroid Tab*) 125 mcg PO 0600 [facility] Last Admin: 10/03/18 05:56 Dose: 125 mcg Ondansetron HCl (Zofran Inj*) 4 mg IV Q6H PRN PRN Reason: NAUSEA Pantoprazole Sodium (Protonix Tab*) 40 mg PO BID [facility] Last Admin: 10/03/18 09:49 Dose: 40 mg Paroxetine HCl (Paxil Tab*) 10 mg PO QAM [facility] Last Admin: 10/03/18 09:49 Dose: 10 mg Pharmacy Profile Note (Scopolamine Patch Remove*) 1 note PATCH OFF 1200 ONE Stop: 10/05/18 12:01 Prednisone (Deltasone Tab*) 20 mg PO TID [facility] Last Admin: 10/03/18 09:49 Dose: 20 mg Propranolol HCl (Inderal Tab*) 40 mg PO BEDTIME [facility] Last Admin: 10/02/18 21:44 Dose: 40 mg Trimethoprim/Sulfamethoxazole (Bactrim Ss 400/80 Tab*) 1 tab PO MoWeFr [facility] Last Admin: 10/03/18 09:56 Dose: 1 tab Laboratory Results - last 24 hr 10/02/18 10/02/18 10/03/18 12:14 12:14 06:23 WBC 14.4 H 16.3 H RBC 3.43 L 3.08 L Hgb 11.8 L 10.6 L Hct 36 33 L MCV 104 H 106 H MCH 34 H 34 H MCHC 33 32 RDW 17 H 17 H Plt Count 484 H 371 MPV 7.6 8.1 Neut % (Auto) 89.1 85.7 Lymph % (Auto) 5.3 4.4 [place] % (Auto) 5.4 9.3 Eos % (Auto) 0 0.1 Baso % (Auto) 0.2 0.5 Absolute Neuts (auto) 12.8 H 14.0 H Absolute Lymphs (auto) 0.8 L 0.7 L Absolute Monos (auto) 0.8 1.5 H Absolute Eos (auto) 0 0 Absolute Basos (auto) 0 0.1 Absolute Nucleated RBC 0.1 0.1 Nucleated RBC % 0.6 0.8 Sodium Potassium Chloride Carbon Dioxide Anion Gap BUN Creatinine Est GFR ( Amer) Est GFR (Non-Af Amer) BUN/Creatinine Ratio Glucose Calcium Blood Type A Positive Antibody Screen Negative 10/03/18 06:23 WBC RBC Hgb Hct MCV MCH MCHC RDW Plt Count MPV Neut % (Auto) Lymph % (Auto) [place] % (Auto) Eos % (Auto) Baso % (Auto) Absolute Neuts (auto) Absolute Lymphs (auto) Absolute Monos (auto) Absolute Eos (auto) Absolute Basos (auto) Absolute Nucleated RBC Nucleated RBC % Sodium 137 Potassium 4.6 Chloride 102 Carbon Dioxide 29 Anion Gap 6 BUN 12 Creatinine 0.85 Est GFR ( Amer) 78.3 Est GFR (Non-Af Amer) 64.7 BUN/Creatinine Ratio 14.1 Glucose 226 H Calcium 8.9 Blood Type Antibody Screen Vital Signs: Temp Pulse Resp BP Pulse Ox 97.9 F 65 18 124/41 99 10/03/18 07:31 10/03/18 07:31 10/03/18 09:57 10/03/18 07:31 10/03/18 07:31 Exam: Gen: 78 yo female in NAD, accompanied by her , cushingoid face HEENT: MMM, no thrush CV: RRR, no m/r/g Resp: CTA, no w/c/r Abd: soft, mildly distended, active bowel sounds, laporoscopy incisions with clean dressings in place Ext: trace LE edema] Assessment: [78 yo female with autoimmune hemolytic anemia who failed to improve with steroids and rituximab admitted for splenectomy. She appears to be doing well postoperatively, will plan to start steroid taper.] Plan: [1. s/p splenectomy - POD #1 - managment per surgery 2. AIHA - start steroid taper by 20 mg every 3 days Dispo: dc per surgery team, heme/onc will continue to follow during her hospitalization and see shortly after discharge]
[2018-10-03] MEDS: Propranolol TAB* 40 MG PO SCH (21:11)
[2018-10-04] MEDS: Levothyroxine TAB* 125 MCG TAB PO SCH (05:56)
[2018-10-04] MEDS: Acetaminop/Codeine 30 MG TAB* 1 TAB (300 MG/30 MG) PO PRN (05:56)
[2018-10-04 07:35] VITALS: BP 117/75
[2018-10-04] MEDS: PARoxetine HCL TAB* 10 MG PO SCH (08:20)
[2018-10-04] MEDS: Pantoprazole TAB * 40 MG TAB PO SCH (08:20)
[2018-10-04] MEDS: predniSONE TAB* 20 MG PO SCH (08:20)
[2018-10-04] MEDS: amLODIPine TAB* 5 MG PO SCH (08:21)
--- NOTE | 2018-10-04 10:39 | PN ---
Progress Note - Progress Note Date of Service: 10/04/18 Note: S: POD #2. Doing well, other than back pain. Johny diet. Matias out this a.m. No sig abd pain. O: Vital Signs - 8 hr 10/04/18 10/04/18 10/04/18 03:54 05:56 07:33 Temperature 98.1 F 97.6 F Pulse Rate 70 72 Respiratory 16 20 16 Rate Blood Pressure 138/56 117/75 (mmHg) O2 Sat by Pulse 94 96 Oximetry 10/04/18 10/04/18 08:20 09:00 Temperature Pulse Rate Respiratory 18 18 Rate Blood Pressure (mmHg) O2 Sat by Pulse Oximetry Intake and Output Last 24 Hours 10/02/18 10/03/18 10/04/18 10/05/18 06:59 06:59 06:59 06:59 Intake Total 3770 685 1400 Output Total 3600 1825 0 Balance 170 -1140 1400 Weight 195 lb Intake: IV Fluids 2990 LR 2990 Oral 780 685 Matias [place] Amount 1400 Output: Urine 1575 325 0 Matias 2025 1500 Other: Estimated Void Small Estimated Stool Amount Large Gen: appears comfortable, other when getting up to move, 2/2 back pain Heart: reg Lungs: clear Abd: lap sites and L mid abd incision all clean, dry; no sig drainage under steristrips; soft; no sig tenderness A: s/p lap splenectomy, doing well P: home today; f/u w/ our office 10/11; patient to arrange f/u w/ [facility]; cont prednisone taper
--- NOTE | 2018-10-04 11:42 | DS ---
CC: [facility]; Dr. Yoli Albert * DISCHARGE SUMMARY: DATE OF ADMISSION: 10/02/18 DATE OF DISCHARGE: 10/04/18 ATTENDING SURGEON: Dr. Sulaiman Kee * (MONA Mejia, dictating). HOSPITAL COURSE: Please refer to admission history and physical and operative note for details. The patient was taken to the operating room on 10/02/18, at which time she underwent laparoscopic splenectomy with Dr. Kee. Surgery itself and postoperative course have been unremarkable. She has had minimal pain other than her chronic back pain, which is her baseline. She is tolerating diet well. She is afebrile with stable vital signs. Laparoscopic sites are clean and dry. Abdomen is soft and minimally tender to palpation. She already has a followup scheduled with [facility] on 10/10/18 and a surgical followup in our office on 10/11/18. She has also been instructed in terms of her prednisone taper and lab work will be per [facility]. MONA MEJIA [id number]/[facility] #: [id number] MTDD
[2018-10-05] MEDS ORDERED: Scopolamine PATCH Remove* 1 NOTE MISC PATCH OFF ONE (12:00)
== END 2018-10-04 11:49 | disposition home health service (06) | DRG 801 ==
LOC: AA 08:37 → SSU 18:31
PROVIDERS: ADMIT Surgery; ATTEND Surgery
PROC: 07TP4ZZ Resection of Spleen, Percutaneous Endoscopic Approach (ICD-10-PCS; principal; 2018-10-02 12:00)
DX: D59.1 Other autoimmune hemolytic anemias (principal); E03.9 Hypothyroidism, unspecified; I10 Essential (primary) hypertension; E78.5 Hyperlipidemia, unspecified; F32.9 Major depressive disorder, single episode, unspecified; G89.29 Other chronic pain; Z96.1 Presence of intraocular lens; F41.9 Anxiety disorder, unspecified; M54.9 Dorsalgia, unspecified; Z98.42 Cataract extraction status, left eye; Z98.41 Cataract extraction status, right eye; Z90.49 Acquired absence of other specified parts of digestive tract; Z88.8 Allergy status to other drugs, medicaments and biological substances
CPT/HCPCS: 36415; 80048; 85025; 86850; 86900; 86901; 88305; 99232; A9270-GY; C1776; J0330; J0690; J1100; J1170; J1240; J2250; J2405; J2704; J3010; J7512